=== PATIENT | female | born 1985 | race Two or more races ===

== ENCOUNTER 2020-07-14 13:48 | Outpatient (REF) | payer BC, SELFPAY ==
[2020-07-14 16:07] LABS: Syphilis Screen Nonreactive (Nonreactive)
[2020-07-15 08:42] LABS: BV Int Neg Control Negative (Negative); BV Int Pos Control Positive (Positive)
[2020-07-15 09:20] LABS: HBsAGNum1 0.14 S/CO (0.00-0.99); HIV AB/AG Nonreactive (Nonreactive); HIV Num 1 0.09 S/CO (0.00-0.99); Hepatitis B Surface Antigen Negative (Negative); ~HepC Num1 0.14 S/CO (0.00-0.79); ~Hepatitis C Antibody Nonreactive (Nonreactive)
[2020-07-16 01:12] LABS: C. trachomatis RNA TMA NOT DETECTED (NOT DETECTED); N. gonorrhoeae RNA TMA NOT DETECTED (NOT DETECTED)
== END 2020-07-14 13:49 | disposition home or self-care (01) ==
LOC: HO.LAB 13:48
PROVIDERS: PCP Internal Medicine; Visit Provider Obstetrics & Gynecology
DX: Z11.3 Encounter for screening for infections with a predominantly sexual mode of transmission (principal)
CPT/HCPCS: 36415; 86780; 86803; 87340; 87389; 87480; 87491; 87510; 87591; 87660

== ENCOUNTER → 2020-11-24 13:30 | Outpatient (BNVA) | payer BC, SELFPAY | PROVIDERS: PCP Internal Medicine; Visit Provider Obstetrics & Gynecology ==

== ENCOUNTER 2021-02-22 09:07 | Outpatient (REF) | payer BC, SELFPAY ==
[2021-02-22 10:35] LABS: Hematocrit 39.7 % (37-47); Hemoglobin 13.3 g/dl (12.0-16.0); Mean Corpuscular HGB Conc 33.5 g/dl (31.0-35.0); Mean Corpuscular Hemoglobin 30.4 pg (27.0-33.0); Mean Corpuscular Volume 90.8 fL (80-98); Mean Platelet Volume 8.8 fL (9.4-12.3); Platelet Count 306 X10*3/uL (160-400); Red Blood Count 4.37 X10*6/uL (4.20-5.50); Red Cell Distribution Width 11.7 % (11.0-16.0); White Blood Count 8.2 X10*3/uL (4.8-10.8)
[2021-02-22 14:40] LABS: CT PCR NOT DETECTED (Not Detect.); NG PCR NOT DETECTED (Not Detect.)
== END 2021-02-22 09:08 | disposition home or self-care (01) ==
LOC: HO.LAB 09:07
PROVIDERS: PCP Internal Medicine; Visit Provider Obstetrics & Gynecology
DX: Z11.3 Encounter for screening for infections with a predominantly sexual mode of transmission (principal); N93.9 Abnormal uterine and vaginal bleeding, unspecified
CPT/HCPCS: 36415; 84443; 85027; 87491; 87591

== ENCOUNTER 2021-03-10 11:01 | Outpatient (REF) | payer BC, SELFPAY ==
--- NOTE | ~2021-03-10 | US_ITS ---
EXAMINATION: US PELVIS COMPLETE US PELVIS ENDOVAGINAL CLINICAL INFORMATION: Abnormal uterine and vaginal bleeding unspecified COMPARISON: Ultrasound pelvis from 10/04/2017 TECHNIQUE: Transabdominal and transvaginal images of the pelvis were obtained. Color and spectral Doppler evaluation of the ovaries was performed. FINDINGS: UTERUS: Anteverted. Normal size and contour, measuring 11.2 x 5.1 x 5.9 cm (cervix to fundus x AP x transverse). Uniform, homogeneous endometrium measures 0.6 cm in width. Linear echogenic focus in the endometrium corresponding to intrauterine device. Nabothian cysts are noted. RIGHT OVARY: Surgically absent. No right adnexal masses or collections identified. LEFT OVARY: Normal size and echogenicity measuring 3.2 x 3.1 x 1.7 cm, volume 8.8 mL. Vascular flow is noted in the left ovary. Multiple follicles are noted in the left ovary. FREE FLUID: No pelvic free fluid. US/US pelvic and transvaginal IMPRESSION: 1. Right ovary surgically absent. 2. Multiple follicles of the left ovary. 3. IUD in situ. 4. Nabothian cysts noted.
== END 2021-03-10 11:02 | disposition home or self-care (01) ==
LOC: HO.US 11:01
PROVIDERS: PCP Internal Medicine; Visit Provider Obstetrics & Gynecology
DX: N93.9 Abnormal uterine and vaginal bleeding, unspecified (principal)
CPT/HCPCS: 76830; 76856

== ENCOUNTER 2021-03-24 10:05 | Outpatient (REF) | payer BC, SELFPAY | END 2021-03-24 10:06 | disposition home or self-care (01) | LOC: HO.LAB 10:05 | PROVIDERS: PCP Internal Medicine; Visit Provider Obstetrics & Gynecology | DX: N93.9 Abnormal uterine and vaginal bleeding, unspecified (principal) | CPT/HCPCS: 58100; 88305 ==

== ENCOUNTER → 2021-04-14 11:02 | Outpatient (BNVA) | payer BC, SELFPAY | PROVIDERS: PCP Internal Medicine; Visit Provider Obstetrics & Gynecology ==

== ENCOUNTER 2021-09-02 14:05 | Outpatient (REF) | payer BC, SELFPAY ==
[2021-09-02 14:16] LABS: MANUAL DIFF FLAG NO
[2021-09-02 14:40] LABS: Basophils Absolute Auto 0.1 X10*3/uL (0.0-0.2); Basophils Percent Auto 0.5 % (0-2); Eosinophils Absolute Auto 0.1 X10*3/uL (0.0-0.4); Eosinophils Percent Auto 1.4 % (0-4); Hematocrit 40.1 % (37.0-47.0); Hemoglobin 13.5 g/dl (12.0-16.0); Imm Gran Abs Auto 0.06 X10*3/uL (0.00-0.03); Imm Gran Pct Auto 0.6 % (0.0-0.4); Lymphocytes Absolute Auto 2.1 X10*3/uL (1.2-4.9); Lymphocytes Percent Auto 21.1 % (20-40); Mean Corpuscular HGB Conc 33.7 g/dl (31.0-35.0); Mean Corpuscular Hemoglobin 30.1 pg (27.0-33.0); Mean Corpuscular Volume 89.3 fL (80.0-98.0); Mean Platelet Volume 8.6 fL (9.4-12.3); Monocytes Absolute Auto 0.6 X10*3/uL (0.1-1.2); Neutrophils Percent Auto 70.4 % (45-73); Platelet Count 334 X10*3/uL (160-400); Red Blood Count 4.49 X10*6/uL (4.20-5.50); Red Cell Distribution Width 11.3 % (11.0-16.0); White Blood Count 9.9 X10*3/uL (4.8-10.8)
[2021-09-02 15:06] LABS: Anion Gap 11 (12-20); Blood Urea Nitrogen 17 mg/dL (9-16); Calcium 9.8 mg/dL (8.4-10.2); Carbon Dioxide 26 mmol/L (22-29); Chloride 106 mmol/L (96-108); Estimated Glomerular Filt Rate > 60; Glucose Random 89 mg/dL (60-115); Potassium 4.4 mmol/L (3.3-5.1); Sodium 139 mmol/L (135-145)
[2021-09-02 15:28] LABS: Thyroid Stimulating Hormone 1.32 uIU/mL (0.32-4.0)
== END 2021-09-02 14:06 | disposition home or self-care (01) ==
LOC: HO.LAB 14:05
PROVIDERS: PCP Internal Medicine; Visit Provider Internal Medicine
DX: Z00.00 Encounter for general adult medical examination without abnormal findings (principal); Z13.0 Encounter for screening for diseases of the blood and blood-forming organs and certain disorders involving the immune mechanism; R51.9 Headache, unspecified
CPT/HCPCS: 36415; 80048; 84443; 85025

== ENCOUNTER 2021-11-12 13:33 | Emergency (ER) | payer BC, SELFPAY ==
--- NOTE | ~2021-11-12 | CT_ITS ---
EXAMINATION: CT ABDOMEN AND PELVIS WITHOUT CONTRAST CLINICAL INFORMATION: Abdominal pain and bloating COMPARISON: Previous pelvic ultrasound February 2021 TECHNIQUE: Multidetector volumetric imaging was performed from the superior aspect of the liver through the pubic symphysis. Sagittal and coronal reformatted images were obtained on the technologist's workstation. This CT examination was performed using dose optimization techniques as appropriate, variously including the following: *Automated exposure control *Adjustment of mA and/or kV according to patient size (this includes techniques or standardized protocols for targeted exams where dose is matched to indication/reason for exam; i.e. extremities or head) *Use of iterative reconstruction technique DLP: 676 mGy-cm FINDINGS: LUNG BASES: The visualized lung bases are unremarkable. LIVER, GALLBLADDER, AND BILIARY TREE: The liver is normal in size, shape, and attenuation. No focal hepatic lesion or biliary ductal dilatation is present. The gallbladder has been removed. PANCREAS: Unremarkable. SPLEEN: Unremarkable. ADRENAL GLANDS: Unremarkable. KIDNEYS AND URETERS: There is a small 2 mm nonobstructing left renal stone. The kidneys are otherwise normal. BLADDER: Unremarkable. GASTROINTESTINAL TRACT: There are postsurgical changes from gastric sleeve. There is a question of mild wall thickening of the distal small bowel and. There is mild stranding of the small bowel mesentery and shotty small bowel mesentery lymphadenopathy. Appearance is questionable for mild enteritis. Small and large bowel is otherwise normal. The appendix is normal. ABDOMINAL WALL: No significant hernia is appreciated. LYMPH NODES: Small, small bowel mesentery and retroperitoneal lymphadenopathy. No enlarged lymph nodes. No ascites. VASCULAR: Unremarkable. PELVIC VISCERA: There is an IUD in the uterus in satisfactory position. OSSEOUS STRUCTURES: There are degenerative changes at L5-S1. CT/CT abdomen pelvis wo con IMPRESSION: Small nonobstructing left renal stone. Post gastric sleeve. Question mild wall thickening of the distal small bowel, shotty small bowel mesentery lymphadenopathy and mild small bowel mesentery fat stranding. Appearance is questionable for enteritis. IUD in the uterus in satisfactory position. Fleischner guidelines were followed.
[2021-11-12 14:01] VITALS: BP 154/93; PULSE 85; RESP 18; TEMP 36.2; O2SAT 100; BMI 29.7
[2021-11-12 14:30] LABS: MANUAL DIFF FLAG NO
[2021-11-12 14:33] LABS: Basophils Percent Auto 0.3 % (0-2); Eosinophils Absolute Auto 0.2 X10*3/uL (0.0-0.4); Hematocrit 38.6 % (37.0-47.0); Hemoglobin 13.3 g/dl (12.0-16.0); Imm Gran Abs Auto 0.05 X10*3/uL (0.00-0.03); Imm Gran Pct Auto 0.6 % (0.0-0.4); Lymphocytes Absolute Auto 1.3 X10*3/uL (1.2-4.9); Lymphocytes Percent Auto 15.1 % (20-40); Mean Corpuscular HGB Conc 34.5 g/dl (31.0-35.0); Mean Corpuscular Hemoglobin 29.8 pg (27.0-33.0); Mean Corpuscular Volume 86.5 fL (80.0-98.0); Mean Platelet Volume 8.4 fL (9.4-12.3); Monocytes Absolute Auto 0.7 X10*3/uL (0.1-1.2); Monocytes Percent Auto 8.2 % (2-11); Neutrophils Absolute Auto 6.4 x10*3/uL (2.0-8.3); Neutrophils Percent Auto 73.8 % (45-73); Platelet Count 268 X10*3/uL (160-400); Red Blood Count 4.46 X10*6/uL (4.20-5.50); Red Cell Distribution Width 11.2 % (11.0-16.0); White Blood Count 8.7 X10*3/uL (4.8-10.8)
[2021-11-12 14:47] LABS: Alanine Aminotransferase 18 U/L (0-31); Albumin Level 4.2 g/dL (3.5-5.0); Alkaline Phosphatase 73 U/L (39-117); Anion Gap 10 (12-20); Aspartate Amino Transferase 15 U/L (5-31); Bilirubin Total 0.7 mg/dL (0.0-1.0); Blood Urea Nitrogen 8 mg/dL (9-16); Calcium 9.2 mg/dL (8.4-10.2); Carbon Dioxide 26 mmol/L (22-29); Chloride 106 mmol/L (96-108); Creatinine Clr Calc Pharmacy 106.6; Estimated Glomerular Filt Rate > 60; Glucose Random 87 mg/dL (60-115); Potassium 4.1 mmol/L (3.3-5.1); Sodium 138 mmol/L (135-145); Total Protein 7.1 g/dL (6.5-8.0)
[2021-11-12 16:31] VITALS: BP 130/81; PULSE 81; RESP 16; O2SAT 98
--- NOTE | 2021-11-12 16:35 | ED.ABDPAIN ---
HPI - Abdominal Pain General Chief Complaint: Abdominal Pain Stated Complaint: Abd pain/Nausea Time Seen by Provider: 11/12/21 20:10 Source: patient Mode of arrival: ambulatory Limitations: no limitations History of Present Illness HPI narrative: 36-year-old female presents with 1 day of abdominal pain and distension, feels bloated diffusely, has a burning sensation, and has had watery diarrhea without passing flatus. Patient also states to have a headache that has not really been relieved with migraine medications. Patient was evaluated at an urgent care and referred to the emergency department. MD elicited complaint: abdominal pain and other (Migraine) Pertinent past history: other (Gastric sleeve 2009) Onset (ago): day(s) (1) Pain Consistency: constant Location: diffuse Severity: severe Pain scale (0-10): 9 Quality: aching, fullness and burning Radiation: none Migration to: no migration Exacerbating factors: eating and movement Relieving factors: nothing Associated symptoms: diarrhea Treatments prior to arrival: prescription analgesics Related Data Home Medications Medication Instructions Recorded Confirmed acetaminophen 500 mg tablet 1,000 mg PO Q8H 07/14/20 09/28/21 hydroxyzine HCl 25 mg tablet 25 mg PO Q8H PRN 07/14/20 09/28/21 levonorgestrel 20 mcg/24 hours (7 INTRAUTERINE 07/14/20 09/28/21 yrs) 52 mg intrauterine device (Mirena) sumatriptan succinate 50 mg tablet mg PO 07/14/20 09/28/21 Previous Rx's Medication Instructions Recorded meclizine 25 mg tablet 25 mg PO DAILY #90 tab 05/19/20 levofloxacin 750 mg tablet 750 mg PO Q24H 6 Days #6 tab 11/12/21 metronidazole 500 mg tablet 500 mg PO Q8H 7 Days #21 tab 11/12/21 oxycodone 5 mg tablet 5 mg PO BID PRN #3 tab 11/12/21 Allergies Allergy/AdvReac Type Severity Reaction Status Date / Time BuSpar Allergy Intermediate hives Verified 11/12/21 14:00 buspirone [From BUSPAR] Allergy Intermediate HIVES Verified 11/12/21 14:00 fentanyl [FENTANYL] Allergy Intermediate FENTANYL Verified 11/12/21 14:00 DURING SURGERY UNKNOWN REACTION tramadol [TRAMADOL] Allergy Intermediate MIGRAINES, Verified 11/12/21 14:00 severe headaches (migraine); dry mouth Pollen, dust Allergy Unknown Unknown Uncoded 08/18/20 08:29 sutures-post op Allergy Unknown infection Uncoded 02/27/19 00:00 vicodin Allergy Unknown dizziness, Uncoded 02/27/19 00:00 light headedness, ineffective Review of Systems Review of Systems Constitutional: Positive headache, No Fever, No Chills ENT/Mouth: No sore throat Eyes: No Eye Pain, No Swelling, No Redness Cardiovascular: No Chest Pain, No SOB Respiratory: No Cough, No Sputum, No Wheezing Gastrointestinal: positive Nausea, no Vomiting, positive watery Diarrhea, positive abdominal pain Genitourinary: No Dysuria, no urinary frequency, no Hematuria, no Flank Pain, no hesitancy Musculoskeletal: No joint pain, No Myalgias Skin: No Skin Lesions, No rash Neuro: No Weakness, No Numbness, positive Headache Psych: No Anxiety/Panic, No Depression Heme/Lymph: No Bruising, No Lymphadenopathy Endocrine: No Polyuria, No Polydipsia Yes all other systems are reviewed and are negative PMFSH Past Medical History Attestation statement: The following information was validated with the patient. Source: old records reviewed Medical History Acute arthritis Anxiety Cholecystectomy planned Depression Migraine headache Sciatic leg pain Surgical History H/O LEEP History of cholecystectomy History of right oophorectomy History of sleeve gastrectomy [place] teeth extracted Family History Family History Mother Diabetes Hypertension Chronic mental illness Father Medical history unknown Maternal Grandmother Diabetes Maternal Uncle Brain tumor Brother Asthma Son In good health Son In good health Maternal Grandfather Esophageal cancer Social History Social History Housing: House Patient Tobacco Use Status: Never used Tobacco e-Cigarette/Vaping Use: Never Used Second Hand Smoke Exposure: No Advance Directives: No Advance Directives Information Provided: No service: No Current occupational status: employed Cognitive needs: No Hearing needs: No Vision needs: Yes Physical Exam ED Vital Signs: Vital Signs - 24 hr 11/12/21 14:01 11/12/21 16:31 11/12/21 19:41 Temperature 97.2 F 98.0 F Pulse Rate 85 81 71 Respiratory Rate 18 16 16 Blood Pressure 154/93 H 130/81 114/58 L Pulse Oximetry 100 98 100 11/12/21 20:57 Temperature Pulse Rate 68 Respiratory Rate 16 Blood Pressure 116/64 Pulse Oximetry BMI result Body Mass Index 29.7 Appearance: Alert. Oriented X3. Mild distress. Eyes: Pupils equal, round and reactive to light. EOMI. Sclera nonicteric. ENT: Pharynx normal. Moist mucous membranes. Neck: Normal inspection. Neck supple. No nuchal rigidity. No vertebral tenderness. CVS: Normal heart rate and rhythm. Pulses normal. Respiratory: No respiratory distress. Breath sounds normal. Abdomen: Soft and diffusely tender. Hyperactive bowel sounds to all 4 quadrants. Left CVA tenderness noted. Skin: Skin warm and dry. Normal skin color. Normal skin turgor. Extremities: No lower extremity edema. Gait well-balanced well coordinated. Neuro: No motor deficit. No sensory deficit. Cranial nerves 2-12 intact Course Course Course Narrative: 36-year-old female presents from urgent care for abdominal pain and headache. Status post gastric bypass in 2009, reporting watery diarrhea, not passing flatus, stating to have abdominal distension and burning pain. Patient does have chronic migraines, unable to control her migraine with medications prescribed her at home. Patient neurovascularly intact. Appears nontoxic, afebrile, and labs are within normal limits. Urinalysis is pending. 19:44 CT scan of abdomen indicates enteritis and renal stones. Urinalysis positive for heme. Will treat with Flagyl and Levaquin as patient does have antibiotics, has a gastric sleeve and amoxicillin may cause increased abdominal pain. Patient verbalized understanding of and agrees to plan of care to discharge home. Verbalized understanding of signs and symptoms indicating need for emergent intervention MDM - Abdominal Pain Differential Diagnosis Differential diagnosis: Likely abdominal pain, acute appendicitis, calculus of kidney, diverticulitis, pancreatitis and small bowel obstruction Medical Records Attestation: I reviewed the patient's medical records. Lab Data Attestation: I reviewed the patient's lab results. Result diagrams: 11/12/21 14:27 11/12/21 14:27 Labs: Lab Results 11/12/21 11/12/21 11/12/21 Range/Units 14:27 14:27 17:13 WBC 8.7 (4.8-10.8) X10*3/uL RBC 4.46 (4.20-5.50) X10*6/uL Hgb 13.3 (12.0-16.0) g/dl Hct 38.6 (37.0-47.0) % MCV 86.5 (80.0-98.0) fL MCH 29.8 (27.0-33.0) pg MCHC 34.5 (31.0-35.0) g/dl RDW 11.2 (11.0-16.0) % Plt Count 268 (160-400) X10*3/uL MPV 8.4 L (9.4-12.3) fL Immature Gran % (Auto) 0.6 H (0.0-0.4) % Neut % (Auto) 73.8 H (45-73) % Lymph % (Auto) 15.1 L (20-40) % Smyth % (Auto) 8.2 (2-11) % Eos % (Auto) 2.0 (0-4) % Baso % (Auto) 0.3 (0-2) % Lymph # (Auto) 1.3 (1.2-4.9) X10*3/uL Smyth # (Auto) 0.7 (0.1-1.2) X10*3/uL Eos # (Auto) 0.2 (0.0-0.4) X10*3/uL Baso # (Auto) 0.0 (0.0-0.2) X10*3/uL Abs Immat Gran (auto) 0.05 H (0.00-0.03) X10*3/uL Absolute Neuts (auto) 6.4 (2.0-8.3) x10*3/uL Absolute Nucleated RBC 0.000 (0.0-0.012) X10*3/uL Nucleated RBC % (auto) 0.0 (0.0-0.2) /100WBC Sodium 138 (135-145) mmol/L Potassium 4.1 (3.3-5.1) mmol/L Chloride 106 (96-108) mmol/L Carbon Dioxide 26 (22-29) mmol/L Anion Gap 10 L (12-20) BUN 8 L D (9-16) mg/dL Creatinine 0.78 (0.5-1.4) mg/dL Estim Creat Clear Calc 106.6 Estimated GFR > 60 Random Glucose 87 (60-115) mg/dL Calcium 9.2 D (8.4-10.2) mg/dL Total Bilirubin 0.7 (0.0-1.0) mg/dL AST 15 (5-31) U/L ALT 18 (0-31) U/L Alkaline Phosphatase 73 (39-117) U/L Total Protein 7.1 (6.5-8.0) g/dL Albumin 4.2 (3.5-5.0) g/dL Lipase 31 (8-78) U/L Urine Color Urine Appearance Urine pH (5.0-8.0) Ur Specific [place] (1.005-1.025) Urine Protein (NEG-TRACE) MG/DL Urine Glucose (UA) (NEG) MG/DL Urine Ketones (NEG) MG/DL Urine Blood (NEG) Urine Nitrite (NEG) Ur Leukocyte Esterase (NEG) Urine RBC (0) /HPF Urine WBC (0-4) /HPF Ur Squamous Epith Cells /LPF Urine Bacteria /LPF COVID-19 (ENMANUEL) (Negative) COVID-19 Clin Com Influenza Type A (BETSEY) Negative (Negative) Influenza Type B (BETSEY) Negative (Negative) Influenza A & B Note See Note 11/12/21 11/12/21 Range/Units 17:13 19:04 WBC (4.8-10.8) X10*3/uL RBC (4.20-5.50) X10*6/uL Hgb (12.0-16.0) g/dl Hct (37.0-47.0) % MCV (80.0-98.0) fL MCH (27.0-33.0) pg MCHC (31.0-35.0) g/dl RDW (11.0-16.0) % Plt Count (160-400) X10*3/uL MPV (9.4-12.3) fL Immature Gran % (Auto) (0.0-0.4) % Neut % (Auto) (45-73) % Lymph % (Auto) (20-40) % Smyth % (Auto) (2-11) % Eos % (Auto) (0-4) % Baso % (Auto) (0-2) % Lymph # (Auto) (1.2-4.9) X10*3/uL Smyth # (Auto) (0.1-1.2) X10*3/uL Eos # (Auto) (0.0-0.4) X10*3/uL Baso # (Auto) (0.0-0.2) X10*3/uL Abs Immat Gran (auto) (0.00-0.03) X10*3/uL Absolute Neuts (auto) (2.0-8.3) x10*3/uL Absolute Nucleated RBC (0.0-0.012) X10*3/uL Nucleated RBC % (auto) (0.0-0.2) /100WBC Sodium (135-145) mmol/L Potassium (3.3-5.1) mmol/L Chloride (96-108) mmol/L Carbon Dioxide (22-29) mmol/L Anion Gap (12-20) BUN (9-16) mg/dL Creatinine (0.5-1.4) mg/dL Estim Creat Clear Calc Estimated GFR Random Glucose (60-115) mg/dL Calcium (8.4-10.2) mg/dL Total Bilirubin (0.0-1.0) mg/dL AST (5-31) U/L ALT (0-31) U/L Alkaline Phosphatase (39-117) U/L Total Protein (6.5-8.0) g/dL Albumin (3.5-5.0) g/dL Lipase (8-78) U/L Urine Color YELLOW Urine Appearance CLEAR Urine pH 6.0 (5.0-8.0) Ur Specific [place] 1.015 (1.005-1.025) Urine Protein NEG (NEG-TRACE) MG/DL Urine Glucose (UA) NEG (NEG) MG/DL Urine Ketones 15 (NEG) MG/DL Urine Blood 2+ H (NEG) Urine Nitrite NEG (NEG) Ur Leukocyte Esterase NEG (NEG) Urine RBC 15-29 H (0) /HPF Urine WBC 0 (0-4) /HPF Ur Squamous Epith Cells 3+ /LPF Urine Bacteria TRACE /LPF COVID-19 (ENMANUEL) Negative (Negative) COVID-19 Clin Com See Note Influenza Type A (BETSEY) (Negative) Influenza Type B (BETSEY) (Negative) Influenza A & B Note Imaging Data CT abdomen pelvis: Attestation: I personally reviewed and interpreted this imaging study as follows: Radiologist's impression: EXAMINATION: CT ABDOMEN AND PELVIS WITHOUT CONTRAST? CLINICAL INFORMATION: Abdominal pain and bloating? COMPARISON: Previous pelvic ultrasound February 2021? TECHNIQUE: Multidetector volumetric imaging was performed from the superior aspect of the liver through the pubic symphysis. Sagittal and coronal reformatted images were obtained on the technologist's workstation.? This CT examination was performed using dose optimization techniques as appropriate, variously including the following: *Automated exposure control *Adjustment of mA and/or kV according to patient size (this includes techniques or standardized protocols for targeted exams where dose is matched to indication/reason for exam; i.e. extremities or head) *Use of iterative reconstruction technique DLP: 676 mGy-cm FINDINGS: LUNG BASES: The visualized lung bases are unremarkable.? LIVER, GALLBLADDER, AND BILIARY TREE: The liver is normal in size, shape, and attenuation. No focal hepatic lesion or biliary ductal dilatation is present. The gallbladder has been removed. PANCREAS: Unremarkable.? SPLEEN: Unremarkable.? ADRENAL GLANDS: Unremarkable.? KIDNEYS AND URETERS: There is a small 2 mm nonobstructing left renal stone. The kidneys are otherwise normal.? BLADDER: Unremarkable.? GASTROINTESTINAL TRACT: There are postsurgical changes from gastric sleeve. There is a question of mild wall thickening of the distal small bowel and. There is mild stranding of the small bowel mesentery and shotty small bowel mesentery lymphadenopathy. Appearance is questionable for mild enteritis. Small and large bowel is otherwise normal. The appendix is normal.? ABDOMINAL WALL: No significant hernia is appreciated.? LYMPH NODES: Small, small bowel mesentery and retroperitoneal lymphadenopathy. No enlarged lymph nodes. No ascites. VASCULAR: Unremarkable. PELVIC VISCERA: There is an IUD in the uterus in satisfactory position. ? OSSEOUS STRUCTURES: There are degenerative changes at L5-S1.? CT/CT abdomen pelvis wo con IMPRESSION: Small nonobstructing left renal stone. Post gastric sleeve. Question mild wall thickening of the distal small bowel, shotty small bowel mesentery lymphadenopathy and mild small bowel mesentery fat stranding. Appearance is questionable for enteritis. IUD in the uterus in satisfactory position.? ? Fleischner guidelines were followed. Discharge Plan Discharge Clinical Impression: Enteritis, Migraine, Calculus of kidney Patient Disposition: Home, Self-Care Instructions: Kidney Stones (ED), Migraine Headache (ED), Enteritis (ED) Additional Instructions: You were evaluated for abdominal pain and migraine. CT scan of abdomen and pelvis indicates enteritis as well as a kidney stone. We are treating you with Levaquin 750 mg for 7 days and Flagyl 500 mg every 8 hours for 7 days Please complete the entire course of these medications. Do not drink alcohol while taking this medication. We gave your 1st dose of medication in the emergency department. We are prescribing oxycodone for pain management. This medication has high risk for addiction and abuse. Do not drive or operate machinery while taking this medication. This medication can cause drowsiness, increased risk for falls, constipation, and delay reaction time. Follow-up with primary care physician. Thank you for choosing this emergency department for evaluation. Please follow-up with primary care physician as needed. Return to the emergency department for any new, concerning, or worsening symptoms. Prescriptions: New levofloxacin 750 mg tablet 750 mg PO Q24H 6 Days Qty: 6 0RF Rx Instructions: Start on 11/13/2021. First dose given at 20:30 in the emergency department metronidazole 500 mg tablet 500 mg PO Q8H 7 Days Qty: 21 0RF oxycodone 5 mg tablet 5 mg PO BID PRN (Reason: pain) Qty: 3 0RF No Action meclizine 25 mg tablet 25 mg PO DAILY Qty: 90 8RF sumatriptan succinate 50 mg tablet PO 0RF acetaminophen 500 mg tablet 1,000 mg PO Q8H 0RF hydroxyzine HCl 25 mg tablet 25 mg PO Q8H PRN (Reason: anxiety) 0RF Mirena 20 mcg/24 hours (6 yrs) 52 mg intrauterine device intrauterine 0RF Interventions: ED Discharge Assessment Last Done: 11/12/21 20:58 Discharge Date/Time: 11/12/21 21:04
[2021-11-12 17:04] LABS: Lipase 31 U/L (8-78)
[2021-11-12] MEDS: 0.9 % Sodium Chloride 1,000 ML 999 ML IVCONT (17:04)
[2021-11-12] MEDS: Lidocaine HCl Viscous 2 % 15 ML SOLUTION MUCOUS MEM (17:05)
[2021-11-12] MEDS: Magnesium Hydrox/Alum Hydrox 30 ML ORAL.SUSP PO (17:05)
[2021-11-12] MEDS: PHENobarb/Hyoscy/Atropine/Scop 10 ML ELIXIR PO (17:06)
[2021-11-12] MEDS: diphenhydrAMINE HCL 50 MG/ML VIAL 25 MG IVPUSH (17:07)
[2021-11-12] MEDS: Ketorolac Tromethamine 30 MG/ML VIAL IVPUSH (17:09)
[2021-11-12] MEDS: Metoclopramide HCl 10 MG/2 ML VIAL IVPUSH (17:10)
[2021-11-12 17:40] LABS: COVID-19 Test Negative (Negative); IDNOW Serial# 16C4AD1C; Influenza A Negative (Negative); Influenza B2 Negative (Negative)
[2021-11-12 19:12] LABS: Appearance Urine CLEAR; Color Urine YELLOW; Glucose Urine UA NEG (NEG); Leukocyte Esterase Urine NEG (NEG); Nitrite Urine NEG (NEG); Specific Gravity - Urine 1.015 (1.005-1.025); UACC Culture Trigger NO; Urine Blood 2+ (NEG); Urine Ketones 15 MG/DL (NEG); Urine Protein NEG (NEG-TRACE)
[2021-11-12 19:23] LABS: Bacteria Urine TRACE /LPF; Squamous Epithelial Cell Urine 3+ /LPF; WBC Urine 0 /HPF (0-4)
[2021-11-12 19:41] VITALS: BP 114/58; PULSE 71; RESP 16; TEMP 36.7; O2SAT 100
[2021-11-12] MEDS: levoFLOXacin 750 MG TABLET PO (20:53)
[2021-11-12] MEDS: metroNIDAZOLE 500 MG TABLET PO (20:53)
[2021-11-12 20:57] VITALS: BP 116/64; PULSE 68; RESP 16
== END 2021-11-12 21:04 | disposition home or self-care (01) ==
PROVIDERS: Nurse Practitioner Family; Emergency Provider Internal Medicine; PCP Internal Medicine
DX: K52.9 Noninfective gastroenteritis and colitis, unspecified (principal); G43.909 Migraine, unspecified, not intractable, without status migrainosus; N20.0 Calculus of kidney; Z20.822 Contact with and (suspected) exposure to COVID-19; Z98.84 Bariatric surgery status
CPT/HCPCS: 36415; 74176; 80053; 81001; 83690; 85025; 87502; 87635; 96361; 96374; 96375; 99284; J1200; J1885; J2765

== ENCOUNTER 2021-12-01 13:29 | Outpatient (REF) | payer BC, SELFPAY ==
[2021-12-02 09:52] LABS: BV Int Neg Control Negative (Negative); BV Int Pos Control Positive (Positive)
[2021-12-02 10:17] LABS: CT PCR NOT DETECTED (Not Detect.); NG PCR NOT DETECTED (Not Detect.)
== END 2021-12-01 13:30 | disposition home or self-care (01) ==
LOC: HO.LAB 13:29
PROVIDERS: Visit Provider Obstetrics & Gynecology
DX: Z01.419 Encounter for gynecological examination (general) (routine) without abnormal findings (principal); Z11.3 Encounter for screening for infections with a predominantly sexual mode of transmission
CPT/HCPCS: 87480; 87491; 87510; 87591; 87660

== ENCOUNTER 2022-06-14 12:58 | Outpatient (REF) | payer BC, SELFPAY ==
[2022-06-14 13:19] LABS: Appearance Urine Cloudy; Color Urine ORANGE; PH 5.5 (5.0-9.0); UMIC TRIGGER UACC YES
[2022-06-14 13:38] LABS: Bacteria Urine 4+ (None Seen); Hyaline Casts Urine 0-2 /LPF (0-2); RBC Urine >20 /HPF (0-2); UACC Culture Trigger YES; WBC Urine >50 /HPF (0-5)
== END 2022-06-14 12:59 | disposition home or self-care (01) ==
LOC: HO.LAB 12:58
PROVIDERS: PCP Internal Medicine; Visit Provider Internal Medicine
DX: N39.0 Urinary tract infection, site not specified (principal)
CPT/HCPCS: 81001; 87086; 87088; 87186

== ENCOUNTER 2022-09-11 10:03 | Outpatient (REF) | payer BC, SELFPAY ==
[2022-09-11 12:00] LABS: HBS Num1 7.99 mIU/mL (0-7.99); ~Hepatitis B Surface Antibody NONREACTIVE (Nonreactive)
[2022-09-12 22:28] LABS: Mumps Virus IgG Antibody 9.18 AU/mL; Rubeola IgG (Measles) >300.00 AU/mL
== END 2022-09-11 10:04 | disposition home or self-care (01) ==
LOC: HO.LAB 10:03
PROVIDERS: PCP Internal Medicine; Visit Provider Internal Medicine
DX: Z00.00 Encounter for general adult medical examination without abnormal findings (principal); Z28.39 Other underimmunization status
CPT/HCPCS: 36415; 86706; 86735; 86762; 86765; 86787

== ENCOUNTER 2022-12-14 14:04 | Outpatient (REF) | payer BC, SELFPAY ==
[2022-12-21 02:08] LABS: HPV mRNA E6/E7 rflx Not Detected (Not Detected)
== END 2022-12-14 14:05 | disposition home or self-care (01) ==
LOC: HO.LNP 14:04
PROVIDERS: PCP Internal Medicine; Visit Provider Obstetrics & Gynecology
DX: Z01.419 Encounter for gynecological examination (general) (routine) without abnormal findings (principal); Z11.51 Encounter for screening for human papillomavirus (HPV)
CPT/HCPCS: 87624; 88142

== ENCOUNTER 2022-12-14 14:51 | Outpatient (REF) | payer BC, SELFPAY ==
[2022-12-15 05:06] LABS: Syphilis Screen Nonreactive (Nonreactive)
[2022-12-15 05:15] LABS: HBsAGNum1 0.32 S/CO (0.00-0.99); HIV AB/AG Nonreactive (Nonreactive); HIV Num 1 0.07 S/CO (0.00-0.99); Hepatitis B Surface Antigen Negative (Negative); ~HepC Num1 0.19 S/CO (0.00-0.79); ~Hepatitis C Antibody Nonreactive (Nonreactive)
[2022-12-15 11:49] LABS: CT PCR NOT DETECTED (Not Detect.); NG PCR NOT DETECTED (Not Detect.)
[2022-12-15 13:57] LABS: BV Int Neg Control Negative (Negative); BV Int Pos Control Positive (Positive)
== END 2022-12-14 14:52 | disposition home or self-care (01) ==
LOC: HO.LAB 14:51
PROVIDERS: PCP Internal Medicine; Visit Provider Obstetrics & Gynecology
DX: Z11.4 Encounter for screening for human immunodeficiency virus [HIV] (principal); Z20.2 Contact with and (suspected) exposure to infections with a predominantly sexual mode of transmission
CPT/HCPCS: 0353U; 86780; 86803; 87340; 87389; 87480; 87510; 87660

== ENCOUNTER 2023-04-16 14:22 | Outpatient (REF) | payer BC, SELFPAY ==
--- NOTE | ~2023-04-16 | MM_ITS ---
EXAMINATION: MM SCREENING DIGITAL BREAST TOMOSYNTHESIS, BILATERAL CLINICAL INFORMATION: Screening. Asymptomatic. COMPARISON: Mammography: There are no prior studies for comparison. TECHNIQUE: Digital breast tomosynthesis is performed in both the craniocaudal and mediolateral oblique views along with computer-aided detection (CAD). Synthesized 2D images are generated from the tomosynthesis. FINDINGS: The breasts are almost entirely fatty (ACR BI-RADS breast composition Category a). There are no significant masses, abnormal calcifications, or other abnormalities. MM/MM tomosynthesis screening BI IMPRESSION: No mammographic evidence of malignancy. ASSESSMENT: BI-RADS BI-RADS 1 - Negative RECOMMENDATION: Routine annual mammography screening. 1 year F/U This examination should not preclude the clinical evaluation of a suspicious palpable abnormality. This patient's information was entered into a reminder system with a target due date for their next mammogram.
== END 2023-04-16 14:23 | disposition home or self-care (01) ==
LOC: HO.MAMMO 14:22
PROVIDERS: PCP Internal Medicine; Visit Provider Obstetrics & Gynecology
DX: Z12.31 Encounter for screening mammogram for malignant neoplasm of breast (principal)
CPT/HCPCS: 77063; 77067

== ENCOUNTER → 2023-04-16 14:30 | Outpatient (BNV) | payer BC, SELFPAY | PROVIDERS: PCP Internal Medicine; Visit Provider Radiology Diagnostic Radiology | DX: Z12.31 Encounter for screening mammogram for malignant neoplasm of breast (principal) | CPT/HCPCS: 77063; 77067 ==

== ENCOUNTER 2023-08-28 13:04 | Outpatient (AMB) | payer BC, SELFPAY ==
--- NOTE | 2023-08-28 13:13 | AM.OFFVISNUR ---
Intake Intake Visit Reasons: TB-PPD Plant Allergies BuSpar Allergy (Intermediate, Verified 12/14/22 14:22) hives buspirone [From BUSPAR] Allergy (Intermediate, Verified 12/14/22 14:22) HIVES fentanyl [FENTANYL] Allergy (Intermediate, Verified 12/14/22 14:22) FENTANYL DURING SURGERY UNKNOWN REACTION sumatriptan [From Imitrex] Allergy (Intermediate, Verified 12/14/22 14:22) Anaphylaxis topiramate [From Topamax] Allergy (Intermediate, Verified 12/14/22 14:22) Numbness tramadol [TRAMADOL] Allergy (Intermediate, Verified 12/14/22 14:22) MIGRAINES, severe headaches (migraine); dry mouth trazodone Allergy (Intermediate, Verified 12/14/22 14:22) Migraine Pollen, dust Allergy (Unknown, Uncoded 12/14/22 14:22) Unknown sutures-post op Allergy (Unknown, Uncoded 12/14/22 14:22) infection vicodin Allergy (Unknown, Uncoded 12/14/22 14:22) dizziness, light headedness, ineffective Office Meds tuberculin PPD 5 tub. unit/0.1 mL intradermal injection solution Performing Provider: Lonnie Arthur MD [facility] Administered by: Merle Muñiz RN on 08/28/23 13:13 Dose Route Admin Location Dispensed Lot Number Expiration Date NDC Assistant Professor Of Business 0.1 mL intradermal 0.1 mL [id number] 10/22/26 77121-925-68 [employer] Coding Assessment & Plan Assessment & Plan Orders: Orders AMB PPD Planted Today Z11.1 - Encounter for screening for respiratory tuberculosis
== END 2023-08-28 13:14 | disposition home or self-care (01) ==
PROVIDERS: PCP Internal Medicine; Visit Provider Internal Medicine
DX: Z11.1 Encounter for screening for respiratory tuberculosis (principal)
CPT/HCPCS: 86580

== ENCOUNTER 2023-08-30 13:36 | Outpatient (REF) | payer BC, SELFPAY ==
[2023-08-31 08:16] LABS: HBS Num1 8.17 mIU/mL (0-7.99)
[2023-08-31 12:45] LABS: HBS Num2 8.33 mIU/mL (0-7.99); HBS Num3 8.44 mIU/mL (0-7.99); ~Hepatitis B Surface Antibody GRAYZONE (Nonreactive)
== END 2023-08-30 13:37 | disposition home or self-care (01) ==
LOC: HO.LAB 13:36
PROVIDERS: PCP Internal Medicine; Visit Provider Internal Medicine
DX: Z00.00 Encounter for general adult medical examination without abnormal findings (principal)
CPT/HCPCS: 36415; 86706

== ENCOUNTER 2023-10-25 13:39 | Outpatient (AMB) | payer BC, SELFPAY ==
--- NOTE | 2023-10-25 13:48 | AM.OFFVISNUR ---
Intake Intake Visit Reasons: Hep B Allergies BuSpar Allergy (Intermediate, Verified 12/14/22 14:22) hives buspirone [From BUSPAR] Allergy (Intermediate, Verified 12/14/22 14:22) HIVES fentanyl [FENTANYL] Allergy (Intermediate, Verified 12/14/22 14:22) FENTANYL DURING SURGERY UNKNOWN REACTION sumatriptan [From Imitrex] Allergy (Intermediate, Verified 12/14/22 14:22) Anaphylaxis topiramate [From Topamax] Allergy (Intermediate, Verified 12/14/22 14:22) Numbness tramadol [TRAMADOL] Allergy (Intermediate, Verified 12/14/22 14:22) MIGRAINES, severe headaches (migraine); dry mouth trazodone Allergy (Intermediate, Verified 12/14/22 14:22) Migraine Pollen, dust Allergy (Unknown, Uncoded 12/14/22 14:22) Unknown sutures-post op Allergy (Unknown, Uncoded 12/14/22 14:22) infection vicodin Allergy (Unknown, Uncoded 12/14/22 14:22) dizziness, light headedness, ineffective Immunizations Recombivax HB (PF) 10 mcg/mL intramuscular suspension Performing Provider: Lonnie Arthur MD [facility] Administered by: Merle Muñiz RN on 10/25/23 13:48 Dose Route Admin Location Dispensed Lot Number Expiration Date VAC [place] 1 mL IM Left Deltoid 1 mL [id number] 05/31/24 95187-110-92 SpontactsINE VIS Given Date VIS Provided VIS Publication Date 10/25/23 Single Vaccine 22 Eligibility Eligibility Date Funding Source Not [facility] Eligible 10/25/23 Private Coding Assessment & Plan Assessment & Plan Orders: Orders Hepatitis B Adult Immunization Today Z23 - Encounter for immunization Medications: New Recombivax HB (PF) (hepatitis B virus vacc.rec(PF)) 1.0 mL IM ONCE 1 mL 0RF NS Z23 - Encounter for immunization
== END 2023-10-25 13:52 | disposition home or self-care (01) ==
LOC: HO.HMGH 13:39
PROVIDERS: PCP Internal Medicine; Visit Provider Internal Medicine
DX: Z23 Encounter for immunization (principal)
CPT/HCPCS: 90471; 90746

== ENCOUNTER 2023-12-10 09:58 | Outpatient (AMB) | payer BC, SELFPAY ==
[2023-12-10 10:02] VITALS: BP 124/80; PULSE 85; O2SAT 99; BMI 30.2
--- NOTE | 2023-12-10 10:02 | A.OFFPC_ITS ---
Vital Signs 12/10/23 10:02 Height 5 ft 6 in Weight 187 lb BMI 30.2 BP 124/80 Blood Pressure Location Lt brachial Position Sitting Pulse 85 Pulse Source Pulse Oximeter Pulse Oximetry (%) 99 Oxygen Delivery Method Room Air Intake Visit Reasons: Annual Exam Floater Operator Required: No Furnace Charger: Not Required per policy Accompanied by: Self / Same As Patient Allergies BuSpar Allergy (Intermediate, Verified 12/10/23 10:03) hives buspirone [From BUSPAR] Allergy (Intermediate, Verified 12/10/23 10:03) HIVES fentanyl [FENTANYL] Allergy (Intermediate, Verified 12/10/23 10:03) FENTANYL DURING SURGERY UNKNOWN REACTION sumatriptan [From Imitrex] Allergy (Intermediate, Verified 12/10/23 10:03) Anaphylaxis topiramate [From Topamax] Allergy (Intermediate, Verified 12/10/23 10:03) Numbness tramadol [TRAMADOL] Allergy (Intermediate, Verified 12/10/23 10:03) MIGRAINES, severe headaches (migraine); dry mouth trazodone Allergy (Intermediate, Verified 12/10/23 10:03) Migraine Pollen, dust Allergy (Unknown, Uncoded 12/10/23 10:03) Unknown sutures-post op Allergy (Unknown, Uncoded 12/10/23 10:03) infection vicodin Allergy (Unknown, Uncoded 12/10/23 10:03) dizziness, light headedness, ineffective Medication List - Last Reconciled 12/10/23 by Lonnie Arthur MD acetaminophen 1,000 mg PO Q8H fluconazole 150 mg PO DAILY 1 dose hydroxyzine HCl 10 mg PO TID PRN levonorgestrel (Mirena) intrauterine meclizine 25 mg PO QID PRN 30 days Tobacco use date assessed: 12/10/23 Dental Screening Dental Screen Date: 12/10/23 Did you have a dental visit in the last 12 months?: Yes Did you have a dental problem in the last 6 months where you did not have access to dental care?: No Was dental information given to patient?: Patient has dentist HPI Annual Exam HPI Details healthy [facility] Medical History Acute arthritis Anxiety Cholecystectomy planned Depression Migraine headache Sciatic leg pain Surgical History History of plastic surgery History of cholecystectomy [place] teeth extracted H/O LEEP History of sleeve gastrectomy History of right oophorectomy Family History Mother Diabetes Hypertension Chronic mental illness Father Medical history unknown Maternal Grandmother Diabetes Maternal Uncle Brain tumor Brother Asthma Son In good health Son In good health Maternal Grandfather Esophageal cancer Social History Household Members: Children Household Members Other:: sister Housing: House Patient Tobacco Use Status: Never used Tobacco e-Cigarette/Vaping Use: Never Used Second Hand Smoke Exposure: No service: No Current occupational status: employed Current occupation: [employer] Current occupational exposures/hazards: No Sexual orientation: Straight/Heterosexual Gender identity: Female Cognitive needs: No Hearing needs: No Vision needs: Yes Female Reproductive History Menstrual Age of Menarche: 11 Questionnaire PHQ-9 Over the last 2 weeks, how often have you been bothered by any of the following problems? 1. Little interest or pleasure in doing things: not at all 2. Feeling down, depressed, or hopeless: not at all 3. Trouble falling or staying asleep, or sleeping too much: not at all 4. Feeling tired or having little energy: not at all 5. Poor appetite or overeating: not at all 6. Feeling bad about yourself - or that you are a failure or have let yourself or your family down: not at all 7. Trouble concentrating on things, such as reading the newspaper or watching television: not at all 8. Moving or speaking so slowly that other people could have noticed. Or the opposite - being so fidgety or restless that you have been moving around a lot more than usual: not at all 9. Thoughts that you would be better off or of hurting yourself in some way: not at all Total score: 0 Depression Screening Interpretation: Negative Depression Screening Done: Yes 34953 - PHQ-9 Billing: Yes Source: Developed by Drs. Chaim Page, Madeleine Mohr, Jose Sow and colleagues, with an educational lara from [employer]. Thrive Questionnaire Date Thrive assessed: 12/10/23 I am a: Patient What is your living situation today?: I have a steady place to live Within the past 12 months, did the food you bought not last and you didn't have the money to get more?: Never true Within the past 12 months, did you worry whether your food would run out before you got money to buy more?: Never true Do you have trouble paying for medicines?: No Do you have trouble getting transportation to medical appointments?: No Do you have trouble paying your heating and electricity bill?: No Do you have trouble taking care of your child, family member or friend?: No Do you have trouble with day-to-day activities such as bathing, preparing meals, shopping, managing finances, etc.?: No Are you currently unemployed and looking for a job?: No Are you interested in more education?: No Please select the resources that you would like help with: None THRIVE Score: 0 AUDIT C Alcohol Use Questionnaire (AUDIT-C) 1. How often do you have a drink containing alcohol?: Monthly or less 2. How many drinks containing alcohol do you have on a typical day when you are drinking?: 1 or 2 Total Score: 1 Score Reviewed/Action Taken: Yes ZENON-7 AMB Questionnaire ZENON-7 Date ZENON - 7 assessed: 12/10/23 Feeling nervous, anxious, or on edge: 0 = Not at all Not being able to stop or control worryin = Not at all Worrying too much about different things: 0 = Not at all Trouble relaxin = Not at all Being so restless that it is hard to sit still: 0 = Not at all Becoming easily annoyed or irritable: 0 = Not at all Feeling afraid as if something awful might happen: 0 = Not at all Total ZENON-7 score (0-4 normal; 5-9 mild; 10-14 moderate; 15-21 severe): 0 Source: Developed by Drs. Chaim Page, Madeleine Mohr, Jose Sow and colleagues, with an educational lara from [employer]. Review of Systems Const Denies chills, Denies fatigue, Denies headache(s) and Denies weight loss Eyes Denies change in vision, Denies diplopia and Denies eye pain ENT Denies vertigo, Denies dizziness, Denies headache(s) and Denies nasal discharge Card Denies chest pain, Denies rapid heart rate and Denies dyspnea on exertion Resp Denies chest congestion, Denies cough, Denies pain with cough and Denies dyspnea on exertion GI Denies abdominal pain, Denies hematochezia and Denies change in bowel habits Musc Denies myalgias, Denies arthralgias and Denies joint swelling Skin/Breast Denies lesions and Denies unusual bruising Neuro Denies vertigo, Denies dizziness, Denies headache(s) and Denies focal weakness Endo Denies fatigue Physical exam (Primary Care) Vital Signs: Last Vital Signs Pulse 85 12/10/23 10:02 BP 124/80 12/10/23 10:02 Pulse Ox 99 12/10/23 10:02 Oxygen Delivery Method Room Air 12/10/23 10:02 BMI result Body Mass Index 30.2 Tobacco/Smoking Status: Tobacco use Status Tobacco use date assessed 12/10/23 12/10/23 10:11 Patient Tobacco Use Status Never used Tobacco 12/10/23 10:11 e-Cigarette/Vaping Use Never Used 12/10/23 10:11 PHQ-9: PHQ-9 Score PHQ-9: Total score 0 12/10/23 10:11 Depression Screening Interpretation: Negative Thrive Assessment: Date of Thrive Assessment Date Thrive assessed 12/10/23 12/10/23 10:11 Const General: cooperative, healthy appearing and no acute distress Orientation/consciousness: oriented to person, oriented to place and oriented to time [facility] Head: Yes normal to inspection, Yes normocephalic and Yes atraumatic Mouth: Normal oral and palatal mucosa present and tongue normal Throat: Yes posterior oropharynx normal and Yes uvula midline Eyes General: appearance normal, both eyes and all related structures Neck Neck: Yes normal visual inspection, Yes full ROM and Yes no lymphadenopathy Thyroid: Thyroid normal Carotids: normal carotid upstroke Chest Chest palpation & inspection: normal inspection of the chest Resp Effort & Inspection: normal respiratory effort and able to speak in complete sentences Auscultation: clear to auscultation bilaterally Cardio Jugular venous distension: no JVD Palpation: normal PMI Rate: regular rate Rhythm: regular rhythm Heart sounds: S1 normal heart sound present and S2 normal heart sound present GI Inspection: Yes normal to inspection Palpation (GI): Soft to palpation and No hepatosplenomegaly present Auscultation: normal bowel sounds General: Yes no CVA tenderness Back/Spine/Pelvis Back: no CVA tenderness Skin General skin exam: no rashes or lesions noted Neuro General: oriented to person, oriented to place and oriented to time Extrem General: Yes normal to inspection and Yes full ROM Assessment and Plan Assessment & Plan (1) Physical exam: Code(s): Z00.00 - Encounter for general adult medical examination without abnormal findings Plan: stable; do labs Orders: Orders Lipid Panel Today Z13.220 - Encounter for screening for lipoid disorders Complete Blood Count Auto Diff Today Z13.0 - Encounter for screening for d iseases of the blood and blood-forming organs and certain disorders involving the immune mechanism Comprehensive [place]. Panel Fast Today Z13.9 - Encounter for screening, unsp ecified Thyroid Stimulating Hormone Today Z13.29 - Encounter for screening for other suspected endocrine disorder Coding Level of Care Code Est Pt Prev Care 40-64y(65891) Diagnoses Physical exam Z00.00
== END 2023-12-10 10:19 | disposition home or self-care (01) ==
PROVIDERS: Visit Provider Internal Medicine
DX: Z00.00 Encounter for general adult medical examination without abnormal findings (principal)
CPT/HCPCS: 99396

== ENCOUNTER 2024-01-30 14:01 | Outpatient (AMB) | payer BC, SELFPAY ==
[2024-01-30 14:35] VITALS: BP 120/84; BMI 29.9
--- NOTE | 2024-01-30 14:35 | MHC.OFFVIS ---
Vital Signs 01/30/24 14:35 Height 5 ft 6 in Weight 185 lb 3.013 oz BMI 29.9 BP 120/84 Intake Visit Reasons: Annual/DO NOT RS Hide Splitter Required: Yes Hide Splitter Language: Claims Vice President Services: Hide Splitter Present (in person) Hide Splitter Name: Lillian AVENDANO Information Interpreted: non-clinical & clinical Stock Chaser: Stock Chaser Present (Lillian AVENDANO) Accompanied by: Self / Same As Patient Allergies BuSpar Allergy (Intermediate, Verified 01/30/24 14:39) hives buspirone [From BUSPAR] Allergy (Intermediate, Verified 01/30/24 14:39) HIVES fentanyl [FENTANYL] Allergy (Intermediate, Verified 01/30/24 14:39) FENTANYL DURING SURGERY UNKNOWN REACTION sumatriptan [From Imitrex] Allergy (Intermediate, Verified 01/30/24 14:39) Anaphylaxis topiramate [From Topamax] Allergy (Intermediate, Verified 01/30/24 14:39) Numbness tramadol [TRAMADOL] Allergy (Intermediate, Verified 01/30/24 14:39) MIGRAINES, severe headaches (migraine); dry mouth trazodone Allergy (Intermediate, Verified 01/30/24 14:39) Migraine Pollen, dust Allergy (Unknown, Uncoded 01/30/24 14:39) Unknown sutures-post op Allergy (Unknown, Uncoded 01/30/24 14:39) infection vicodin Allergy (Unknown, Uncoded 01/30/24 14:39) dizziness, light headedness, ineffective Is last menstrual period known: Yes Last menstrual period: 01/24/24 HPI Comments Details: Presenting for annual exam. No complaints. Last Pap/HPV was negative in 12/15 Last Mammogram was BI-RADS 1 in 04/16 [facility] Medical History Cholecystectomy planned Migraine headache Sciatic leg pain Acute arthritis Depression Anxiety Surgical History History of plastic surgery History of cholecystectomy [place] teeth extracted H/O LEEP History of sleeve gastrectomy History of right oophorectomy Family History Mother Diabetes Hypertension Chronic mental illness Father Medical history unknown Maternal Grandmother Diabetes Maternal Uncle Brain tumor Brother Asthma Son In good health Son In good health Maternal Grandfather Esophageal cancer Social History Household Members: Children Household Members Other:: sister Housing: House Patient Tobacco Use Status: Never used Tobacco e-Cigarette/Vaping Use: Never Used Second Hand Smoke Exposure: No service: No Current occupational status: employed Current occupation: [employer] Current occupational exposures/hazards: No Sexual orientation: Straight/Heterosexual Gender identity: Female Cognitive needs: No Hearing needs: No Vision needs: Yes Female Reproductive History Menstrual Age of Menarche: 11 Date of last menstrual period: 01/24/24 Total pregnancies: 2 Full term: 2 Number of Living Children: 2 Date of last pap smear: 12/18/22 Date of Mammogram: 04/16/23 Review of Systems Const All systems reviewed & are unremarkable except as noted in HPI and below Card Reports as per HPI Resp Reports as per HPI GI Reports as per HPI and Reports no additional complaints Reports as per HPI Physical Exam Vital Signs: Last Vital Signs BP 120/84 01/30/24 14:35 BMI result Body Mass Index 29.9 Const General: cooperative, healthy appearing and comfortable Chest Chest palpation & inspection: normal inspection of the chest and normal palpation of entire chest wall Breast/axilla inspection: normal inspection of the breasts and normal inspection of the axillae Breast/axilla palpation: normal palpation of the breasts, normal palpation of the axillae and no axillary lymphadenopathy Resp Effort & Inspection: normal respiratory effort Auscultation: clear to auscultation bilaterally Percussion: percussion normal Cardio Palpation: normal PMI Rate: regular rate Rhythm: regular rhythm Heart sounds: no murmurs and no rubs Peripheral pulses: Peripheral pulses 2+ throughout GI Inspection: Yes normal to inspection Palpation (GI): Soft to palpation, nontender, no guarding, not rigid and No hepatosplenomegaly present Percussion: Yes normal to percussion Auscultation: normal bowel sounds Rectal Exam - Female: deferred General: Yes bladder normal to palpation External Female Exam: No lesion Speculum Exam - Vagina: normal appearance of the vagina, normal palpation, normal vaginal discharge and not erythematous Speculum Exam - Cervix: normal appearance of the cervix and normal palpation Bimanual exam- vagina & uterus: normal bimanual exam, normal palpation, uterine size normal, bladder normal to palpation, consistency normal and normal palpation Bimanual Exam- Adnexa, other: normal adnexae, no masses and no tenderness Assessment & Plan Assessment & Plan (1) Well woman exam: Comment: History of BILLY 2 in 2013 status post LEEP Code(s): Z01.419 - Encounter for gynecological examination (general) (routine) without abnormal findings Category: Medical Plan: Cotesting not indicated this year. Instructions given the patient to schedule next screening Mammogram in 04/17. Counseled the patient about the recommended dietary allowance of 1000 mg of Calcium & 600 IU of vitamin D. The patient was instructed to perform monthly self-breast exams and to schedule an annual exam in a year; All questions answered and the patient verbalized understanding. Instructed the patient to schedule annual exam in a year Coding Level of Care Code Est Pt Prev Care 40-64y(29244) Diagnoses Well woman exam Z01.419
== END 2024-01-30 14:47 | disposition home or self-care (01) ==
LOC: HO.HWS 14:01
PROVIDERS: PCP Internal Medicine; Visit Provider Obstetrics & Gynecology
DX: Z01.419 Encounter for gynecological examination (general) (routine) without abnormal findings (principal)
CPT/HCPCS: 99396

== ENCOUNTER → 2024-01-30 14:01 | Outpatient (BNVA) | payer BC, SELFPAY | PROVIDERS: PCP Internal Medicine; Visit Provider Obstetrics & Gynecology ==

== ENCOUNTER 2024-04-21 12:59 | Outpatient (REF) | payer BC, SELFPAY ==
--- NOTE | ~2024-04-21 | MM_ITS ---
EXAMINATION: MM SCREENING DIGITAL BREAST TOMOSYNTHESIS, BILATERAL CLINICAL INFORMATION: Screening. Asymptomatic. COMPARISON: Mammography: Comparison is made with available priors TECHNIQUE: Digital breast mammography with tomosynthesis is performed in both the craniocaudal and mediolateral oblique views along with computer-aided detection (CAD). FINDINGS: There are scattered areas of fibroglandular density (ACR BI-RADS breast composition Category b). There are no significant masses, abnormal calcifications, or other abnormalities. MM/MM tomosynthesis screening BI IMPRESSION: No mammographic evidence of malignancy. ASSESSMENT: BI-RADS BI-RADS 1 - Negative RECOMMENDATION: Routine annual mammography screening. 1 year F/U This examination should not preclude the clinical evaluation of a suspicious palpable abnormality. This patient's information was entered into a reminder system with a target due date for their next mammogram. Electronically signed by: Farheen Gauthier DO 04/29/2024 03:09 PM [facility]
== END 2024-04-21 13:00 | disposition home or self-care (01) ==
LOC: HO.MAMMO 12:59
PROVIDERS: PCP Internal Medicine; Visit Provider Internal Medicine
DX: Z12.31 Encounter for screening mammogram for malignant neoplasm of breast (principal)
CPT/HCPCS: 77063; 77067

== ENCOUNTER → 2024-04-21 13:15 | Outpatient (BNV) | payer BC, SELFPAY | PROVIDERS: PCP Internal Medicine; Visit Provider Internal Medicine | DX: Z12.31 Encounter for screening mammogram for malignant neoplasm of breast (principal) | CPT/HCPCS: 77063; 77067 ==

== ENCOUNTER 2024-05-28 08:31 | Emergency (ER) | payer BC, SELFPAY ==
--- NOTE | ~2024-05-28 | XR_ITS ---
EXAMINATION: XR SHOULDER, RIGHT CLINICAL INFORMATION: pain COMPARISON: None available. TECHNIQUE: AP external rotation, Grashey, scapular Y, and axillary views of the right shoulder. FINDINGS: Mild spurring at the AC joint. No fracture, dislocation, or destructive process. XR/XR shoulder RT min 2V IMPRESSION: No acute findings. Electronically signed by: Inderjit Pinto MD 05/28/2024 01:14 PM [facility]
[2024-05-28 08:34] VITALS: BP 139/67; PULSE 101; RESP 20; TEMP 36.4; O2SAT 97; BMI 30.9
--- NOTE | 2024-05-28 09:57 | ED_ITS ---
HPI - Extremity Problem General Chief complaint: Extremity Injury, Upper Stated complaint: R arm pain Time Seen by Provider: 05/28/24 09:56 Source: patient and RN notes reviewed Mode of arrival: ambulatory Limitations: no limitations History of Present Illness ED Provider: Patricia Miller PA-C HPI Narrative: This is a 39-year-old female, with a history of disc herniations, who presents to the emergency department with complaints of right shoulder pain x2 weeks. Patient states that about 2 weeks ago she lifted a heavy TV and felt a popping sensation in her right shoulder. She states that she had increased pain. She states that over the last several days her pain has only increased and now she has some numbness and tingling down her right arm. She denies history of shoulder trouble in the past. She states that prior to this injury, she had muscle spasms in her back which she typically has however reports that the increased heavy lifting caused her symptoms to worsened. She denies any chest pain or shortness of breath. She has been taking ibuprofen and Tylenol with minimal relief. Denies any other complaints or concerns at this time. MD Complaint: extremity pain Onset (ago): day(s) Pain Consistency: constant Quality: burning and aching Radiation: distal Relieving factors: rest Exacerbating factors: range of motion and palpation Associated symptoms: denies other symptoms Related Data Home Medications ?Medication ?Instructions ?Recorded ?Confirmed acetaminophen 500 mg tablet 1,000 mg PO Q8H 07/14/20 12/10/23 levonorgestrel 21 mcg/24 hr (up to intrauterine 07/14/20 12/10/23 8 years) 52 mg intrauterine device (Mirena) Previous Rx's ?Medication ?Instructions ?Recorded fluconazole 150 mg tablet 150 mg PO DAILY 1 dose #1 tab 06/21/23 meclizine 25 mg tablet 25 mg PO QID PRN dizziness 30 days 06/28/23 #30 tabs hydroxyzine HCl 10 mg tablet 10 mg PO TID PRN itching #90 tabs 12/17/23 acetaminophen 650 mg 650 mg PO Q8H PRN pain #30 tabs 05/28/24 tablet,extended release (Tylenol 8 Hour) ibuprofen 600 mg tablet 600 mg PO Q6H PRN pain #30 tabs 05/28/24 methocarbamol 750 mg tablet 750 mg PO TID 3 days #9 tabs 05/28/24 Allergies Allergy/AdvReac Type Severity Reaction Status Date / Time BuSpar Allergy Intermediate hives Verified 05/28/24 08:37 buspirone [From BUSPAR] Allergy Intermediate HIVES Verified 05/28/24 08:37 fentanyl [FENTANYL] Allergy Intermediate FENTANYL Verified 05/28/24 08:37 DURING SURGERY UNKNOWN REACTION sumatriptan [From Imitrex] Allergy Intermediate Anaphylaxis Verified 05/28/24 08:37 topiramate [From Topamax] Allergy Intermediate Numbness Verified 05/28/24 08:37 tramadol [TRAMADOL] Allergy Intermediate MIGRAINES, Verified 05/28/24 08:37 severe headaches (migraine); dry mouth trazodone Allergy Intermediate Migraine Verified 05/28/24 08:37 bupropion [From Wellbutrin] Allergy Palpitation Verified 05/28/24 08:38 s Pollen, dust Allergy Unknown Unknown Uncoded 01/30/24 14:39 sutures-post op Allergy Unknown infection Uncoded 01/30/24 14:39 vicodin Allergy Unknown dizziness, Uncoded 01/30/24 14:39 light headedness, ineffective Review of Systems Review of Systems: Yes all other systems are reviewed and are negative Constitutional: Constitutional: Reports as per [facility] Past Medical History Attestation statement: The following information was validated with the patient. Medical History Cholecystectomy planned Migraine headache Sciatic leg pain Acute arthritis Depression Anxiety Surgical History History of plastic surgery History of cholecystectomy [place] teeth extracted H/O LEEP History of sleeve gastrectomy History of right oophorectomy Family History Family History Mother Diabetes Hypertension Chronic mental illness Father Medical history unknown Maternal Grandmother Diabetes Maternal Uncle Brain tumor Brother Asthma Son In good health Son In good health Maternal Grandfather Esophageal cancer Social History Social History Household Members: Children Household Members Other:: sister Housing: House Patient Tobacco Use Status: Never used Tobacco e-Cigarette/Vaping Use: Never Used Second Hand Smoke Exposure: No Advance Directives: No Advance Directives Information Provided: Yes Do you have a plan to hurt others: No Plan service: No Current occupational status: employed Current occupation: [employer] Current occupational exposures/hazards: No Sexual orientation: Straight/Heterosexual Gender identity: Female Cognitive needs: No Hearing needs: No Vision needs: Yes Physical Exam Vital Signs: Vital Signs: Last Vital Signs Temp 97.2 F 05/28/24 12:43 Pulse 72 05/28/24 12:43 Resp 16 05/28/24 12:43 BP 113/64 05/28/24 12:43 Pulse Ox 97 05/28/24 12:43 O2 Del Method Room Air 05/28/24 12:43 BMI result Body Mass Index 30.9 Const: General: cooperative, comfortable and no acute distress Orientation/consciousness: patient oriented x3 Limitations: no limitations HEENT: Head: Yes normal to inspection, Yes normocephalic and Yes atraumatic Ears: hearing grossly normal bilaterally General nose exam: Normal external nose present Face and sinus: Yes normal facial exam Mouth: Normal oral and palatal mucosa present, oropharynx normal and moist mucous membranes Throat: Yes posterior oropharynx normal Eyes: General: appearance normal, both eyes and all related structures Eyelids: Yes eyelids normal Conjunctivae: conjunctivae normal Sclerae: sclerae normal Pupils: Equal, round and reactive pupils present EOM: EOMs intact bilaterally Neck: Neck: Yes normal visual inspection, Yes full ROM and Yes no lymph adenopathy Lymphatic: no lymphadenopathy noted Chest: Chest palpation & inspection: normal inspection of the chest Resp: Effort & Inspection: normal respiratory effort and able to speak in complete sentences Auscultation: clear to auscultation bilaterally, no crackles, no rales, no rhonchi and no wheezes Cardio: Rate: regular rate Rhythm: regular rhythm Heart sounds: S1 normal heart sound present and S2 normal heart sound present GI: Inspection: Yes normal to inspection Skin: General skin exam: no rashes or lesions noted Trauma: no lacerations or abrasions Wounds: no wounds Neuro: General: patient oriented x3 and moves all extremities Cranial nerves: Yes Equal, round and reactive pupils present Extrem: Other: Right shoulder with no obvious bony deformity or swelling. Right shoulder with without any point tenderness. Full passive range of motion of the right shoulder and right elbow. Patient with muscle spasm noted overlying the right trapezius. Lift-off. Negative drop-arm test General: Yes normal to inspection Right upper extremity: normal to inspection Left upper extremity: normal to inspection Right lower extremity: normal to inspection Left lower extremity: normal to inspection Course Reevaluation(s) Reevaluation #1: X-ray returns, she has no acute bony abnormality seen on imaging. Discussed findings with patient. She states that she is nauseous after receiving the morphine however pain has slightly improved. Patient will be discharged with follow-up with Orthopedics. Patient has muscle spasm which we are treating with muscle relaxants. Also unclear if this is a ligamentous injury therefore will follow-up with orthopedics for further management. Given strict return precautions. Patient stable for discharge. Time: 13:29 Medications Administered Discontinued Medications Generic Name Dose Route Start Last Admin Trade Name Freq PRN Reason Stop Dose Admin Diazepam 2 mg 05/28/24 10:05/28/24 10:33 Diazepam 2 Mg Tablet PO 05/28/24 10:05 2 mg ONCE ONE Administration Ketorolac Tromethamine 30 mg 05/28/24 10:05/28/24 10:32 Ketorolac Tromethamine 30 Mg/Ml Vial IM 05/28/24 10:05 30 mg ONCE ONE Administration Lidocaine 1 patch 05/28/24 10:04 05/28/24 10:33 Lidocaine 4 % Patch Adh..Patch TRANSDERMA 05/28/24 10:05 1 patch ONCE ONE Administration Protocol Morphine Sulfate 15 mg 05/28/24 12:05 05/28/24 12:35 Morphine Sulfate Immed Release 15 Mg Tablet PO 05/28/24 12:06 15 mg ONCE ONE Administration Medical Decision Making Medical Decision Making MDM Narrative: This is a 39-year-old female, with a history of disc herniations, who presents emergency department with complaints of right upper back, and right shoulder pain x2 weeks. On arrival, patient is slightly tachycardic at 1:01 a.m., likely secondary to pain. Patient has holding right arm. Patient with obvious muscle spasms noted overlying the right trapezius muscle, she has full passive range of motion of the right shoulder. Strong radial pulse. No obvious bony deformity or swelling. X-ray of the right shoulder was obtained. Will medicate patient with Toradol, lidocaine patch, and Valium. We will continue to closely monitor pending x-ray report Differential Diagnosis Differential Diagnoses: The differential diagnosis associated with the presentation includes AC joint separation, ligamentous injury, rotator cuff tear, muscle spasm, adhesive capsulitis Admission/Observation Consideration of admission/observation: Escalation of care including admission/observation considered Lab Data MDM Lab Attestation statement: I reviewed the patient's lab results. Radiology Impression Discussion of test interpretation with radiology: I have reviewed the radiologist's reading. Radiologist Impression: EXAMINATION: XR SHOULDER, RIGHT CLINICAL INFORMATION: pain COMPARISON: None available. TECHNIQUE: AP external rotation, Grashey, scapular Y, and axillary views of the right shoulder. FINDINGS: Mild spurring at the AC joint. No fracture, dislocation, or destructive process. XR/XR shoulder RT min 2V IMPRESSION: No acute findings. Electronically signed by: Inderjit Pinto MD 05/28/2024 01:14 PM [facility] [place] Dictated By: Inderjit Pinto MD Signed By: <Electronically signed Discharge Plan Discharge Clinical Impression: Spasm of right trapezius muscle, Shoulder pain, right Patient Disposition: Home, Self-Care Instructions: Muscle Spasm (ED), Shoulder Pain (ED) Additional Instructions: You were seen in the emergency department due to right shoulder and right upper back pain. You have signs and symptoms of muscle spasm. It is unclear if you tore any ligaments in your right shoulder also contributing to your pain. Gentle stretching, massage, heat, can help with your symptoms. Alternate between ibuprofen and Tylenol can also help. I am also prescribing a muscle relaxants also known as Robaxin. Please take as prescribed. Please be aware that this can cause drowsiness, do not drink alcohol or drive while taking this medication. Follow-up with the orthopedic radiologic technologist, call today to make an appointment. Your x-ray of your right shoulder does not show any bony abnormalities. If any new or worsening symptoms occur including but not limited to worsening pain, chest pain, shortness of breath, please seek emergent care. Prescriptions: New methocarbamol 750 mg tablet 750 mg PO TID 3 Days Qty: 9 0RF acetaminophen [Tylenol 8 Hour] 650 mg tablet extended release 650 mg PO Q8H PRN (Reason: pain) Qty: 30 0RF ibuprofen 600 mg tablet 600 mg PO Q6H PRN (Reason: pain) Qty: 30 0RF No Action fluconazole 150 mg tablet 150 mg PO DAILY Qty: 1 0RF Rx Instructions: administer on day 1 of therapy meclizine 25 mg tablet 25 mg PO QID PRN (Reason: dizziness) 30 Days Qty: 30 2RF hydroxyzine HCl 10 mg tablet 10 mg PO TID PRN (Reason: itching) Qty: 90 3RF acetaminophen 500 mg tablet 1,000 mg PO Q8H Mirena 20 mcg/24 hours (6 yrs) 52 mg intrauterine device intrauterine Print Language: Kyrgyz
[2024-05-28] MEDS: Ketorolac Tromethamine 30 MG/ML VIAL IM (10:32)
[2024-05-28] MEDS: Lidocaine 4 % Patch ADH..PATCH 1 PATCH TRANSDERMA (10:33)
[2024-05-28] MEDS: diazePAM 2 MG TABLET PO (10:33)
[2024-05-28] MEDS: Morphine Sulfate Immed Release 15 MG TABLET PO (12:35)
[2024-05-28 12:43] VITALS: BP 113/64; PULSE 72; RESP 16; TEMP 36.2; O2SAT 97
[2024-05-28] MEDS: Ondansetron ODT 4 MG TAB.RAPDIS TRANSLINGU (13:37)
[2024-05-28 13:38] VITALS: BP 113/64; PULSE 72; RESP 16; TEMP 36.2; O2SAT 97
== END 2024-05-28 13:40 | disposition home or self-care (01) ==
PROVIDERS: Emergency Provider Emergency Medicine; PCP Internal Medicine
DX: M62.838 Other muscle spasm (principal); M25.511 Pain in right shoulder
CPT/HCPCS: 73030; 96372; 99283; 99284; J1885

== ENCOUNTER 2024-05-30 10:31 | Outpatient (AMB) | payer BC, SELFPAY ==
--- NOTE | 2024-05-30 11:30 | AM.OFFWIN_ITS ---
Intake Vital Signs 05/30/24 11:31 Height 5 ft 6 in Weight 189 lb BMI 30.5 BP 118/76 Blood Pressure Location Lt brachial Position Sitting Pulse 70 Pulse Source Pulse Oximeter Pulse Oximetry (%) 100 Oxygen Delivery Method Room Air Intake Visit Reasons: EP severe RT arm nerve pain Intake Note: Patient here for severe right arm nerve pain that has been present for about 1-2 weeks Patient Tobacco Use Status: Never used Tobacco Allergies BuSpar Allergy (Intermediate, Verified 05/30/24 11:32) hives buspirone [From BUSPAR] Allergy (Intermediate, Verified 05/30/24 11:32) HIVES fentanyl [FENTANYL] Allergy (Intermediate, Verified 05/30/24 11:32) FENTANYL DURING SURGERY UNKNOWN REACTION sumatriptan [From Imitrex] Allergy (Intermediate, Verified 05/30/24 11:32) Anaphylaxis topiramate [From Topamax] Allergy (Intermediate, Verified 05/30/24 11:32) Numbness tramadol [TRAMADOL] Allergy (Intermediate, Verified 05/30/24 11:32) MIGRAINES, severe headaches (migraine); dry mouth trazodone Allergy (Intermediate, Verified 05/30/24 11:32) Migraine bupropion [From Wellbutrin] Allergy (Verified 05/30/24 11:32) Palpitations Pollen, dust Allergy (Unknown, Uncoded 05/30/24 11:32) Unknown sutures-post op Allergy (Unknown, Uncoded 05/30/24 11:32) infection vicodin Allergy (Unknown, Uncoded 05/30/24 11:32) dizziness, light headedness, ineffective Medication List - Last Reconciled 05/30/24 by Otoniel York MD acetaminophen 1,000 mg PO Q8H acetaminophen ER (Tylenol 8 Hour) 650 mg PO Q8H PRN hydroxyzine HCl 10 mg PO TID PRN ibuprofen 600 mg PO Q6H PRN levonorgestrel (Mirena) intrauterine lorazepam 0.5 mg PO DAILY meclizine 25 mg PO QID PRN 30 days Do you need a note to return to daycare/school/sports/work: Yes HPI EP severe RT arm nerve pain HPI Details Patient is a 39-year-old female has already been to emergency room for this problem 2 days ago She says that about 10 days ago she started having pain right upper back radiating to shoulder And then she did some heavy lifting and started having severe pain right arm which is shooting in nature At time she feeling weak in her hand In emergency room she had shoulder x-ray which was within normal limit she was referred to orthopedic from emergency room She came in today as she continued to have the pain On examination she has full range of motion in the neck and full range of motion in shoulder Motor strength is equal both hands Sensory intact I am treating her with prednisone 20 mg for 5 days She may continue ibuprofen with food Muscle relaxer changed to baclofen 20 mg And I have added gabapentin as well 100 mg She has a primary care appointment coming up next week on Sunday [facility] Medical History Cholecystectomy planned Migraine headache Sciatic leg pain Acute arthritis Depression Anxiety Surgical History History of plastic surgery History of cholecystectomy [place] teeth extracted H/O LEEP History of sleeve gastrectomy History of right oophorectomy Family History Mother Diabetes Hypertension Chronic mental illness Father Medical history unknown Maternal Grandmother Diabetes Maternal Uncle Brain tumor Brother Asthma Son In good health Son In good health Maternal Grandfather Esophageal cancer Social History Household Members: Children Household Members Other:: sister Housing: House Patient Tobacco Use Status: Never used Tobacco e-Cigarette/Vaping Use: Never Used Second Hand Smoke Exposure: No service: No Current occupational status: employed Current occupation: [employer] Current occupational exposures/hazards: No Sexual orientation: Straight/Heterosexual Gender identity: Female Cognitive needs: No Hearing needs: No Vision needs: Yes Female Reproductive History Menstrual Age of Menarche: 11 Review of Systems Const All systems reviewed & are unremarkable except as noted in HPI and below Physical Exam Vital Signs: Last Vital Signs Pulse 70 05/30/24 11:31 BP 118/76 05/30/24 11:31 Pulse Ox 100 05/30/24 11:31 Oxygen Delivery Method Room Air 05/30/24 11:31 BMI result Body Mass Index 30.5 Const General: no acute distress Orientation/consciousness: patient oriented x3 Eyes General: appearance normal, both eyes and all related structures Neck Neck: Yes supple Resp Effort & Inspection: normal respiratory effort and able to speak in complete sentences Neuro Other: Motor sensory intact General: patient oriented x3 Extrem Other: Both shoulders with full range of motion Psych Mental Status: mental status grossly normal Assessment & Plan Assessment & Plan (1) Radiculitis of right cervical region: Code(s): M54.12 - Radiculopathy, cervical region Plan Patient is a 39-year-old female has already been to emergency room for this problem 2 days ago She says that about 10 days ago she started having pain right upper back radiating to shoulder And then she did some heavy lifting and started having severe pain right arm which is shooting in nature At time she feeling weak in her hand In emergency room she had shoulder x-ray which was within normal limit she was referred to orthopedic from emergency room She came in today as she continued to have the pain On examination she has full range of motion in the neck and full range of motion in shoulder Motor strength is equal both hands Sensory intact I am treating her with prednisone 20 mg for 5 days She may continue ibuprofen with food Muscle relaxer changed to baclofen 20 mg And I have added gabapentin as well 100 mg She has a primary care appointment coming up next week on Sunday Medications: New gabapentin 100 mg PO BEDTIME 14 caps 0RF baclofen 20 mg PO BEDTIME 10 tabs 0RF prednisone 20 mg PO DAILY 5 days 5 tabs 0RF Discontinued methocarbamol Discontinued Reason: Doctor's Order 750 mg PO TID 3 days 9 tabs 0RF Coding Level of Care Code Est Pt Level 4 (07217) Diagnoses Radiculitis of right cervical region M54.12
[2024-05-30 11:31] VITALS: BP 118/76; PULSE 70; O2SAT 100; BMI 30.5
== END 2024-05-30 12:27 | disposition home or self-care (01) ==
PROVIDERS: PCP Internal Medicine; Visit Provider Internal Medicine
DX: M54.12 Radiculopathy, cervical region (principal)

== ENCOUNTER 2024-06-03 11:29 | Outpatient (REF) | payer BC, SELFPAY | END 2024-06-03 11:30 | disposition home or self-care (01) | LOC: HO.XRAY 11:29 | PROVIDERS: PCP Internal Medicine; Visit Provider Internal Medicine | DX: M54.2 Cervicalgia (principal); M54.12 Radiculopathy, cervical region | CPT/HCPCS: 72040; 96127 ==

== ENCOUNTER 2024-06-03 11:29 | Outpatient (AMB) | payer BC, SELFPAY ==
[2024-06-03 11:30] VITALS: BP 130/72; PULSE 68; O2SAT 98; BMI 30.8
--- NOTE | 2024-06-03 11:30 | A.OFFPC_ITS ---
Vital Signs 06/03/24 11:30 Height 5 ft 6 in Weight 191 lb BMI 30.8 BP 130/72 Blood Pressure Location Lt brachial Position Sitting Pulse 68 Pulse Source Pulse Oximeter Pulse Oximetry (%) 98 Oxygen Delivery Method Room Air Intake Visit Reasons: nerve pain Allergies BuSpar Allergy (Intermediate, Verified 06/03/24 11:31) hives buspirone [From BUSPAR] Allergy (Intermediate, Verified 06/03/24 11:31) HIVES fentanyl [FENTANYL] Allergy (Intermediate, Verified 06/03/24 11:31) FENTANYL DURING SURGERY UNKNOWN REACTION sumatriptan [From Imitrex] Allergy (Intermediate, Verified 06/03/24 11:31) Anaphylaxis topiramate [From Topamax] Allergy (Intermediate, Verified 06/03/24 11:31) Numbness tramadol [TRAMADOL] Allergy (Intermediate, Verified 06/03/24 11:31) MIGRAINES, severe headaches (migraine); dry mouth trazodone Allergy (Intermediate, Verified 06/03/24 11:31) Migraine bupropion [From Wellbutrin] Allergy (Verified 06/03/24 11:31) Palpitations Pollen, dust Allergy (Unknown, Uncoded 06/03/24 11:31) Unknown sutures-post op Allergy (Unknown, Uncoded 06/03/24 11:31) infection vicodin Allergy (Unknown, Uncoded 06/03/24 11:31) dizziness, light headedness, ineffective Medication List - Last Reconciled 06/04/24 by Lonnie Arthur MD acetaminophen 1,000 mg PO Q8H acetaminophen ER (Tylenol 8 Hour) 650 mg PO Q8H PRN baclofen 20 mg PO BEDTIME gabapentin 100 mg PO BEDTIME hydroxyzine HCl 10 mg PO TID PRN ibuprofen 600 mg PO Q6H PRN levonorgestrel (Mirena) intrauterine lorazepam 0.5 mg PO DAILY meclizine 25 mg PO QID PRN 30 days prednisone 20 mg PO DAILY 5 days Tobacco use date assessed: 06/03/24 Dental Screening Dental Screen Date: 12/10/23 HPI nerve pain HPI Details right paracervical pain radiating down right arm for a while PFSH Medical History Cholecystectomy planned Migraine headache Sciatic leg pain Acute arthritis Depression Anxiety Surgical History History of plastic surgery History of cholecystectomy [place] teeth extracted H/O LEEP History of sleeve gastrectomy History of right oophorectomy Family History Mother Diabetes Hypertension Chronic mental illness Father Medical history unknown Maternal Grandmother Diabetes Maternal Uncle Brain tumor Brother Asthma Son In good health Son In good health Maternal Grandfather Esophageal cancer Social History Household Members: Children Household Members Other:: sister Housing: House Patient Tobacco Use Status: Never used Tobacco Tobacco use type: Cigarette e-Cigarette/Vaping Use: Never Used Second Hand Smoke Exposure: No service: No Current occupational status: employed Current occupation: [employer] Current occupational exposures/hazards: No Sexual orientation: Straight/Heterosexual Gender identity: Female Cognitive needs: No Hearing needs: No Vision needs: Yes Female Reproductive History Menstrual Age of Menarche: 11 Questionnaire PHQ-9 Over the last 2 weeks, how often have you been bothered by any of the following problems? 1. Little interest or pleasure in doing things: not at all 2. Feeling down, depressed, or hopeless: not at all 3. Trouble falling or staying asleep, or sleeping too much: not at all 4. Feeling tired or having little energy: not at all 5. Poor appetite or overeating: not at all 6. Feeling bad about yourself - or that you are a failure or have let yourself or your family down: not at all 7. Trouble concentrating on things, such as reading the newspaper or watching television: not at all 8. Moving or speaking so slowly that other people could have noticed. Or the opposite - being so fidgety or restless that you have been moving around a lot more than usual: not at all 9. Thoughts that you would be better off or of hurting yourself in some way: not at all Total score: 0 Depression Screening Interpretation: Negative Depression Screening Done: Yes 30414 - PHQ-9 Billing: Yes Source: Developed by Drs. Chaim Page, Madeleine Mohr, Jose Sow and colleagues, with an educational lara from [employer]. Thrive Questionnaire Date Thrive assessed: 12/10/23 AUDIT C Alcohol Use Questionnaire (AUDIT-C) 2. How many drinks containing alcohol do you have on a typical day when you are drinking?: 1 or 2 3. How often do you have six or more drinks on one occasion?: Never Total Score: 0 ZENON-7 AMB Questionnaire ZENON-7 Date ZENON - 7 assessed: 12/10/23 Source: Developed by Drs. Chaim Page, Madeleine Mohr, Jose Sow and colleagues, with an educational lara from [employer]. Review of Systems Const Denies chills, Denies headache(s) and Denies weight loss ENT Denies headache(s) Card Denies chest pain, Denies syncope, Denies irregular heart rhythm and Denies dyspnea Resp Denies chest congestion, Denies cough and Denies dyspnea GI Denies abdominal pain, Denies change in stool character, Denies nausea and Denies vomiting Musc Denies deformity and Denies joint swelling Neuro Denies syncope and Denies headache(s) Physical exam (Primary Care) Vital Signs: Last Vital Signs Pulse 68 06/03/24 11:30 BP 130/72 06/03/24 11:30 Pulse Ox 98 06/03/24 11:30 Oxygen Delivery Method Room Air 06/03/24 11:30 BMI result Body Mass Index 30.8 Tobacco/Smoking Status: Tobacco use Status Tobacco use date assessed 06/03/24 06/03/24 11:35 Patient Tobacco Use Status Never used Tobacco 06/03/24 11:35 Tobacco use type Cigarette 06/03/24 11:35 e-Cigarette/Vaping Use Never Used 06/03/24 11:35 PHQ-9: PHQ-9 Score PHQ-9: Total score 0 06/03/24 11:35 Depression Screening Interpretation: Negative Thrive Assessment: Date of Thrive Assessment Date Thrive assessed 12/10/23 06/03/24 11:35 Const General: cooperative, comfortable, no acute distress and alert Neck Neck: Yes no lymphadenopathy Thyroid: Thyroid normal Resp Effort & Inspection: normal respiratory effort Auscultation: clear to auscultation bilaterally Percussion: percussion normal Cardio Jugular venous distension: no JVD Palpation: normal PMI Rate: regular rate Rhythm: regular rhythm Heart sounds: S1 normal heart sound present and S2 normal heart sound present GI Inspection: Yes normal to inspection Palpation (GI): No hepatosplenomegaly present Skin General skin exam: no rashes or lesions noted Extrem General: Yes no clubbing, cyanosis or edema Coding Level of Care Code Est Pt Level 3 (99418) Diagnoses Radiculitis of right cervical region M54.12 Additional Codes PHQ-9 - 51516 - PHQ-9 Billing: Yes ([id number]) Assessment & Plan Assessment & Plan (1) Radiculitis of right cervical region: Code(s): M54.12 - Radiculopathy, cervical region Category: Medical Plan: PT ordered Orders: Orders XR cervical spine 2V 06/03/24 M54.2 - Cervicalgia PT Evaluation and Treatment 06/03/24 M54.12 - Radiculopathy, cervical region
== END 2024-06-03 11:48 | disposition home or self-care (01) ==
PROVIDERS: PCP Internal Medicine; Visit Provider Internal Medicine
DX: M54.12 Radiculopathy, cervical region (principal)

== ENCOUNTER 2024-08-06 10:00 | Outpatient (RCR) | payer BC, SELFPAY ==
--- NOTE | 2024-07-16 10:50 | MHC.PT.EP ---
[facility] [place] Office [place] Office [place] Office [address] Randee Price [address] [phone] F: [phone] F: [phone] F: [phone] F: [phone] Physical Therapy Plan of Care Date of Evaluation: 07/16/24 Date of Surgery: n/a Diagnosis: cervical radiculpathy Assessment: Patient is a 39 year old female presenting to PT with complaints of pain in her neck. Pt reports onset of pain began about 2 months ago due to lifting a tv. She presents today with impairments in pain, radicular sx, cervical ROM, posture. 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 Pt expresses usp goal of reducing pain, and is motivated to work towards this in PT. Clinical presentation today is most consistent with signs and sx associated with neck pain and pt will benefit from skilled PT 2 week x 4 weeks to address the following problems and impairments noted upon evaluation: pain, radicular sx, cervical ROM, posture. These problems limit the patient with the following functional activities: work, ADLs, reaching, lifting, sleeping. The prescribed treatment plan of care is medically necessary. Co-morbidities of none were identified and taken into considerations of plan of care. Pt was educated on HEP, role of PT, prognosis, POC. Frequency and Duration: The patient will be seen 2 x week x 4 weeks Short Term Goals: Pt will demonstrate centralization of sx in 2 weeks. Pt will demonstrate cervical ROM without pain or sx in 2 weeks. Senior Site Manager Goals: Pt will demonstrate improved NDI score by 10% in 4 weeks for improved functional mobility. Pt will demonstrate ability to work a full day with min to no pain in 4 weeks for return to PLOF. Pt will demonstrate ability to reach and lift household items with min to no pain in 4 weeks for return to PLOF. Treatment Plan: Modalities to reduce pain, spasms and effusion. Manual therapy to restore motion and function. Therapeutic exercise to improve strength and flexibility. Neuromuscular re-education for posture and balance. Therapeutic activities to return to functional activities of daily living. Electronically signed by: Ana Singh, PT, DPT, ATC Please sign and return to therapist. Thank you for your referral.
--- NOTE | 2024-08-15 08:14 | MHC.PT.DC ---
[facility] [place] Office [place] [facility] [place] [facility] [address] Randee Price [address] [phone] F: [phone] F: [phone] F: [phone] F: [phone] Physical Therapy Discharge Report Diagnosis: cervical radiculpathy Date of Surgery: n/a Date of Evaluation: 07/16/24 Date of Discharge: 08/15/24 Treatments to Date: 3 Cancellations to Date: 2 No Shows to Date: 0 Discharge Status: Improved Function Discharge Summary: Pt cancelled her last appointment and did not rescheduled. This was planned to be her last visit so she is d/c. Electronically signed by: Ana Singh, PT, DPT, ATC Please sign and return to therapist. Thank you for your referral.
== END 2024-08-15 08:14 | disposition home or self-care (01) ==
LOC: HO.PTCHIC 10:00
PROVIDERS: PCP Internal Medicine; Visit Provider Internal Medicine
DX: M54.12 Radiculopathy, cervical region (principal)
CPT/HCPCS: 97110; 97140; 97161

== ENCOUNTER 2024-12-15 13:23 | Outpatient (AMB) | payer BC, SELFPAY ==
--- NOTE | 2024-12-15 13:25 | MHC.PC.OV ---
Vital Signs 12/15/24 13:26 Height 5 ft 6 in Weight 192 lb BMI 31.0 BP 110/78 Blood Pressure Location Lt brachial Position Sitting Pulse 81 Pulse Source Pulse Oximeter Pulse Oximetry (%) 98 Oxygen Delivery Method Room Air Intake Visit Reasons: ABDIFATAH Dr Arthur Detail Manager Required: No Accompanied by: Self / Same As Patient Allergies miconazole (From Monistat 1 Combo Pack) Allergy (Severe, Verified 12/15/24 13:42) burning BuSpar Allergy (Intermediate, Verified 12/15/24 13:42) hives buspirone (From BUSPAR) Allergy (Intermediate, Verified 12/15/24 13:42) HIVES fentanyl (FENTANYL) Allergy (Intermediate, Verified 12/15/24 13:42) FENTANYL DURING SURGERY UNKNOWN REACTION sumatriptan (From Imitrex) Allergy (Intermediate, Verified 12/15/24 13:42) Anaphylaxis topiramate (From Topamax) Allergy (Intermediate, Verified 12/15/24 13:42) Numbness tramadol (TRAMADOL) Allergy (Intermediate, Verified 12/15/24 13:42) MIGRAINES, severe headaches (migraine); dry mouth trazodone Allergy (Intermediate, Verified 12/15/24 13:42) Migraine bupropion (From Wellbutrin) Allergy (Verified 12/15/24 13:42) Palpitations vilazodone Adverse Reaction (Severe, Verified 12/15/24 13:42) suicidal ideation Pollen, dust Allergy (Unknown, Uncoded 12/15/24 13:42) Unknown sutures-post op Allergy (Unknown, Uncoded 12/15/24 13:42) infection vicodin Allergy (Unknown, Uncoded 12/15/24 13:42) dizziness, light headedness, ineffective Medication List - Last Reconciled 12/15/24 by AARON Ramos acetaminophen 1,000 mg PO Q8H acetaminophen ER (Tylenol 8 Hour) 650 mg PO Q8H PRN baclofen 20 mg PO BEDTIME gabapentin 100 mg PO BEDTIME hydroxyzine HCl 10 mg PO TID PRN ibuprofen 600 mg PO Q6H PRN levonorgestrel (Mirena) intrauterine lorazepam 0.5 mg PO DAILY meclizine 25 mg PO QID PRN 30 days metronidazole 0.75% (MetroCream) 1 appl topical DAILY metronidazole 1% 1 appl topical DAILY mometasone 0.1% 1 appl topical DAILY omeprazole 40 mg PO DAILY ondansetron 4 mg PO Q8H Tobacco use date assessed: 12/15/24 Dental Screening Dental Screen Date: 12/15/24 Did you have a dental visit in the last 12 months?: Yes Did you have a dental problem in the last 6 months where you did not have access to dental care?: No Was dental information given to patient?: Patient has dentist HPI ABDIFATAH Dr Arthur HPI Details The patient is a 39-year-old female presenting with chronic pain management and evaluation of multiple ongoing health issues. Patient of Dr. Arthur, who retired, presenting for transition of care. The patient reports a long-standing history of depression and anxiety, which have been managed with psychiatric care. She experiences daily anxiety and panic attacks, exacerbated by recent life stressors, including the of a family member. The patient has been seeing a psychiatrist regularly, which she finds beneficial. The patient suffers from chronic migraines and has a history of chronic pain affecting multiple areas, including her neck, knees, and back. She has been diagnosed with osteoarthritis in her knees and femur, and experiences significant pain on her right side. She has previously received cortisone injections, which were effective on the left knee but not on the right. Reports PT to right shoulder recently with positive effect. Reports that she never see pain management. States that she is currently managing her pain with ibuprofen 600mg a day and tylenol 1000mg a day. The patient reports carpal tunnel syndrome, with symptoms of fingers getting stuck during activities like cleaning. She also experiences sciatica, which has recently worsened, causing bilateral leg pain. She has not had an MRI of her back in over 15 years. The patient has a history of Lyme disease diagnosed at age 25, which she believes may contribute to her ongoing joint pain. She has undergone an MRI of the brain, which showed no abnormalities. The patient reports rosacea and acne, which are not well controlled with current topical treatments. She has tried [id number] treatments and metronidazole gel without significant improvement. The patient experiences chronic constipation, which she attributes to her pinched nerves and back pain. She reports difficulty with bowel movements and incomplete evacuation, requiring the use of MiraLax occasionally. She does have a history of gastric sleeve FORMERLY [facility], [facility] Medical History Cholecystectomy planned Migraine headache Sciatic leg pain Acute arthritis Depression Anxiety Surgical History History of plastic surgery History of cholecystectomy [place] teeth extracted H/O LEEP History of sleeve gastrectomy History of right oophorectomy Family History Mother Diabetes Hypertension Chronic mental illness Father Medical history unknown Maternal Grandmother Diabetes Maternal Uncle Brain tumor Brother Asthma Son In good health Son In good health Maternal Grandfather Esophageal cancer Social History Household Members: Children Household Members Other:: sister Housing: House Patient Tobacco Use Status: Never used Tobacco Tobacco use type: Cigarette e-Cigarette/Vaping Use: Never Used Second Hand Smoke Exposure: No service: No Current occupational status: employed Current occupation: [employer] Current occupational exposures/hazards: No Sexual orientation: Straight/Heterosexual Gender identity: Female Cognitive needs: No Hearing needs: No Vision needs: Yes Female Reproductive History Menstrual Age of Menarche: 11 Questionnaire PHQ-9 Over the last 2 weeks, how often have you been bothered by any of the following problems? 1. Little interest or pleasure in doing things: not at all 2. Feeling down, depressed, or hopeless: several days 3. Trouble falling or staying asleep, or sleeping too much: several days 4. Feeling tired or having little energy: several days 5. Poor appetite or overeating: several days 6. Feeling bad about yourself - or that you are a failure or have let yourself or your family down: not at all 7. Trouble concentrating on things, such as reading the newspaper or watching television: more than half the days 8. Moving or speaking so slowly that other people could have noticed. Or the opposite - being so fidgety or restless that you have been moving around a lot more than usual: not at all 9. Thoughts that you would be better off or of hurting yourself in some way: not at all Total score: 6 Source: Developed by Drs. Chaim Page, Madeleine Mohr, Jose Sow and colleagues, with an educational lara from [employer]. Thrive Questionnaire Date Thrive assessed: 12/15/24 I am a: Patient What is your living situation today?: I have a steady place to live Within the past 12 months, did the food you bought not last and you didn't have the money to get more?: Sometimes True Within the past 12 months, did you worry whether your food would run out before you got money to buy more?: Often true Do you have trouble paying for medicines?: No Do you have trouble getting transportation to medical appointments?: No Do you have trouble paying your heating and electricity bill?: No Do you have trouble taking care of your child, family member or friend?: No Do you have trouble with day-to-day activities such as bathing, preparing meals, shopping, managing finances, etc.?: No Are you currently unemployed and looking for a job?: No Are you interested in more education?: No Please select the resources that you would like help with: None Currently or been in a relationship where the following occur: No concerns reported THRIVE Score: 2 AUDIT C Alcohol Use Questionnaire (AUDIT-C) 1. How often do you have a drink containing alcohol?: Monthly or less 2. How many drinks containing alcohol do you have on a typical day when you are drinking?: 1 or 2 3. How often do you have six or more drinks on one occasion?: Never Total Score: 1 ZENON-7 AMB Questionnaire ZENON-7 Date ZENON - 7 assessed: 12/15/24 Feeling nervous, anxious, or on edge: 2 = More than half the days Not being able to stop or control worryin = Several days Worrying too much about different things: 1 = Several days Trouble relaxin = Several days Being so restless that it is hard to sit still: 0 = Not at all Becoming easily annoyed or irritable: 1 = Several days Feeling afraid as if something awful might happen: 1 = Several days Total ZENON-7 score (0-4 normal; 5-9 mild; 10-14 moderate; 15-21 severe): 7 Source: Developed by Drs. Chaim Page, Madeleine Mohr, Jose Sow and colleagues, with an educational lara from [employer]. Review of Systems Const Reports body aches and Reports headache(s) (on and off) Eyes Denies loss of vision ENT Denies vertigo, Denies dizziness, Reports headache(s) (on and off), Reports neck pain and Denies sore throat Card Denies chest pain, Denies leg edema and Denies lightheadedness Resp Denies cough, Denies hemoptysis and Denies wheezing GI Denies abdominal pain, Denies melena, Denies constipation, Denies diarrhea and Denies vomiting Denies urinary frequency, Denies dysuria and Denies urinary urgency Musc Reports arthralgias (knees, shoulders), Denies joint swelling, Reports neck pain, Denies numbness, Reports radiating pain into limb (right side mostly) and Denies tingling Skin/Breast Reports acne Neuro Denies Abnormal speech present, Denies behavioral changes, Denies vertigo, Denies dizziness, Reports headache(s) (on and off), Denies loss of vision, Denies memory loss, Denies numbness and Denies tingling Psych Reports anxiety, Denies behavioral changes, Reports depression, Denies memory loss and Reports panic attacks Toney/Lymph Denies easy bleeding and Denies easy bruising Aller/Immun Denies wheezing Physical exam (Primary Care) Vital Signs: Last Vital Signs Pulse 81 12/15/24 13:26 BP 110/78 12/15/24 13:26 Pulse Ox 98 12/15/24 13:26 Oxygen Delivery Method Room Air 12/15/24 13:26 BMI result Body Mass Index 31.0 Tobacco/Smoking Status: Tobacco use Status Tobacco use date assessed 12/15/24 12/15/24 13:36 Patient Tobacco Use Status Never used Tobacco 12/15/24 13:36 Tobacco use type Cigarette 12/15/24 13:36 e-Cigarette/Vaping Use Never Used 12/15/24 13:36 PHQ-9: PHQ-9 Score PHQ-9: Total score 6 12/15/24 22:35 Thrive Assessment: Date of Thrive Assessment Date Thrive assessed 12/15/24 12/15/24 13:36 Currently or been in a relationship where the following occur: No concerns reported Const General: healthy appearing, no acute distress, alert and awake Nutritional Appearance: well nourished Orientation/consciousness: oriented to person, oriented to place and oriented to time HENMT Ears: TM's normal bilaterally General nose exam: Normal nasal mucous membranes and turbinates present Eyes Conjunctivae: conjunctivae normal Sclerae: sclerae normal Pupils: Equal, round and reactive pupils present Neck Neck: Yes no lymphadenopathy and Yes no JVD Thyroid: Thyroid normal Carotids: no bruits Resp Effort & Inspection: normal respiratory effort and not tachypneic Auscultation: no crackles, no rales, no rhonchi and no wheezes Cardio Rate: regular rate Rhythm: regular rhythm Heart sounds: no murmurs and normal S1 and S2 GI Palpation (GI): Soft to palpation, nontender, no hepatomegaly and no splenomegaly Auscultation: normal bowel sounds General: Yes no CVA tenderness Back/Spine/Pelvis Back: no CVA tenderness Cervical Spine: No Cervical spine tenderness Thoracic/Lumbar Spine: No thoracic spinal tenderness, No lumbar spinal tenderness and No straight leg raise positive Skin General skin exam: no rashes or lesions noted and dry skin Neuro General: oriented to person, oriented to place and oriented to time Cranial nerves: Yes Equal, round and reactive pupils present Speech: No Abnormal speech present Gait exam (Neuro): Normal gait present Motor exam (neuro): no tremor noted Extrem Right upper extremity: full ROM Left upper extremity: full ROM Right lower extremity: full ROM; no edema Left lower extremity: full ROM; no edema Psych Mental Status: mental status grossly normal Speech and movement: Normal speech and movement present Affect: normal affect Attitude: cooperative Thought process: Normal thought process present Coding Level of Care Code Est Pt Level 4 (31533) Diagnoses Migraine without status migrainosus, not intractable, unspecified migraine type G43.909 Migraine type: unspecified Status migrainosus presence: without status migrainosus Intractability: not intractable Depression, unspecified depression type F32.A Depression Type: unspecified Abnormal uterine bleeding (AUB) N93.9 Radiculitis of right cervical region M54.12 Chronic pain of both knees M25.561; M25.562; G89.29 Chronicity: chronic Right shoulder pain, unspecified chronicity M25.511 Chronicity: unspecified Chronic bilateral low back pain with right-sided sciatica G89.29; M54.41 Chronicity: chronic Back pain laterality: bilateral Sciatica presence: with sciatica Sciatica laterality: sciatica of right side Acne vulgaris L70.0 Acne type: acne vulgaris Time Spent (min) 42 Assessment & Plan Assessment & Plan (1) Migraine headache: Code(s): G43.909 - Migraine, unspecified, not intractable, without status migrainosus Category: Medical Qualifiers: Migraine type: unspecified Status migrainosus presence: without status migrainosus Intractability: not intractable Qualified Code(s): G43.909 - Migraine, unspecified, not intractable, without status migrainosus Plan: Lifestyle changes for acute onset or preventative migraine headache Consistent swelling times, at least 8 hours a night Regularly scheduled meals and between meal snacks Adequate fluid intake to prevent dehydration, especially with high intensity sports/activity Avoid triggers (bright light, loud noises, strong smells, etc.,0 Keep headache diary to try to pinpoint triggers (2) Depression: Code(s): F32.9 - Major depressive disorder, single episode, unspecified Category: Medical Qualifiers: Depression Type: unspecified Qualified Code(s): F32.A - Depression, unspecified Plan: Reports exacerbation close to periods and was recommended to by her psychiatrist to have Obgyn order medication to stop her period. She is already on Levonorgestrel IU, however, she is still getting her periods while on her IUD. Continue gabapentin 100 mg at bedtime, hydroxyzine HCI 10 mg TID prn, and lorazepam 0.5 mg daily. Follow up with psychiatry as scheduled (3) Abnormal uterine bleeding (AUB): Code(s): N93.9 - Abnormal uterine and vaginal bleeding, unspecified Category: Medical Plan: Continue levonorgestrel IUD Follow up with OBGYN as scheduled (4) Radiculitis of right cervical region: Code(s): M54.12 - Radiculopathy, cervical region Category: Medical Plan: Cervical showing narrowing of intervertebral disc spaces at C5-C6, C6-C7, and C7-T1 suggests suggest cysts underlying moderate degenerative disc disease. Continue gabapentin 100 mg at bedtime, baclofen 20 mg at bedtime and Tylenol 650 mg p.r.n. (5) Bilateral knee pain: Code(s): M25.561 - Pain in right knee; M25.562 - Pain in left knee Category: Medical Qualifiers: Chronicity: chronic Qualified Code(s): M25.561 - Pain in right knee; M25.562 - Pain in left knee; G89.29 - Other chronic pain Plan: History of cortisone injections with positive effects in the left knee only. Reports that she has been coping with conservative treatment of Tylenol, baclofen and gabapentin (6) Shoulder pain, right: Code(s): M25.511 - Pain in right shoulder Category: Medical Qualifiers: Chronicity: unspecified Qualified Code(s): M25.511 - Pain in right shoulder Plan: right shoulder xray showed mild spurring of the AC joint 05/28/24 Recent PT with positive effects (7) Lower back pain: Code(s): M54.50 - Low back pain, unspecified Category: Medical Qualifiers: Chronicity: chronic Back pain laterality: bilateral Sciatica presence: with sciatica Sciatica laterality: sciatica of right side Qualified Code(s): G89.29 - Other chronic pain; M54.41 - Lumbago with sciatica, right side Plan: Reports a history of bulging discs-NO MRI in over 15 years reports radiculopathy on the right side mostly, infrequently she might get pain down her left side Will refer the patient to pain management to further evaluate (8) Acne: Code(s): L70.9 - Acne, unspecified Category: Medical Qualifiers: Acne type: acne vulgaris Qualified Code(s): L70.0 - Acne vulgaris Plan: Reports that her current treatment metronidaole 1% has been ineffective will try the patient on clindamycin 1% topical Orders: Orders Complete Blood Count Auto Diff Today F32.9 - Major depressive disorder, single episode, unspecified, G43.909 - Migraine, unspecified, not intractable, without status migrainosus, N93.9 - Abnormal uterine and vaginal bleeding, unspecified, R42 - Dizziness and giddiness, Z00.00 - Encounter for general adult medical examination without abnormal findings, Z01.419 - Encounter for gynecological examination (general) (routine) without abnormal findings Lipid Panel Today F32.9 - Major depressive disorder, single episode, unspecified, G43.909 - Migraine, unspecified, not intractable, without status migrainosus, N93.9 - Abnormal uterine and vaginal bleeding, unspecified, R42 - Dizziness and giddiness, Z00.00 - Encounter for general adult medical examination without abnormal findings, Z01.419 - Encounter for gynecological examination (general) (routine) without abnormal findings TSH reflex Free T4 Today F32.9 - Major depressive disorder, single episode, unspecified, G43.909 - Migraine, unspecified, not intractable, without status migrainosus, N93.9 - Abnormal uterine and vaginal bleeding, unspecified, R42 - Dizziness and giddiness, Z00.00 - Encounter for general adult medical examination without abnormal findings, Z01.419 - Encounter for gynecological examination (general) (routine) without abnormal findings Vitamin D 25-OH Total Today F32.9 - Major depressive disorder, single episode, unspecified, G43.909 - Migraine, unspecified, not intractable, without status migrainosus, N93.9 - Abnormal uterine and vaginal bleeding, unspecified, R42 - Dizziness and giddiness, Z00.00 - Encounter for general adult medical examination without abnormal findings, Z01.419 - Encounter for gynecological examination (general) (routine) without abnormal findings Comprehensive [place]. Panel Fast Today F32.9 - Major depressive disorder, single episode, unspecified, G43.909 - Migraine, unspecified, not intractable, without status migrainosus, N93.9 - Abnormal uterine and vaginal bleeding, unspecified, R42 - Dizziness and giddiness, Z00.00 - Encounter for general adult medical examination without abnormal findings, Z01.419 - Encounter for gynecological examination (general) (routine) without abnormal findings UA CC w/rflx Micro + Cult Today F32.9 - Major depressive disorder, single episode, unspecified, G43.909 - Migraine, unspecified, not intractable, without status migrainosus, N93.9 - Abnormal uterine and vaginal bleeding, unspecified, R42 - Dizziness and giddiness, Z00.00 - Encounter for general adult medical examination without abnormal findings, Z01.419 - Encounter for gynecological examination (general) (routine) without abnormal findings Referrals Pain Management Referral G89.29 - Other chronic pain, M54.12 - Radiculopathy, cervical region, M54.41 - Lumbago with sciatica, right side Medications: New mometasone 0.1% 1 appl topical DAILY 45 grams 3RF clindamycin phosphate 1% 1 appl topical DAILY 60 grams 2RF
[2024-12-15 13:26] VITALS: BP 110/78; PULSE 81; O2SAT 98; BMI 31.0
--- OUTSIDE RECORDS SUMMARY | 2024-12-15 14:46 | XMS_ITS | Clinical Summary ---
Author Organization [address] [place] [address] Address [address] [place] [address] Phone Care Team Providers Care Snack Steward Name Role Phone Lonnie Arthur MD Primary Care Provider [phone] Allergies Active Allergy Reactions Criticality Noted Date Comments Buspirone Hives 02/18/2020 Fentanyl 02/18/2020 Sumatriptan 07/03/2024 Other Reaction(s): BP drops, throat tightens Tramadol Headache 02/18/2020 Migraine headaches Medications wheat dextrin 3 gram/3.8 gram powder Take 4 g by mouth. 0 Active acetaminophen (TYLENOL) 500 mg tablet Take 2 tablets (1,000 mg total) by mouth. 0 Active albuterol HFA (PROAIR HFA ; PROVENTIL HFA ; VENTOLIN HFA) 90 mcg/actuation inhaler Inhale 2 puffs by mouth every 4 (four) hours if needed. Active buPROPion XL (WELLBUTRIN XL) 150 mg 24 hr tablet Take 1 tablet (150 mg total) by mouth. 3 Active cholecalciferol (VITAMIN D-3) 1,250 mcg (50,000 unit) capsule TAKE 1 CAPSULE BY MOUTH 1 TIME A WEEK 1 Active cyanocobalamin, vitamin B-12, 1,000 mcg tablet, sublingual Place 1,000 mcg under the tongue. 1 Active fluticasone propionate (FLONASE) 50 mcg/actuation nasal spray Administer 1 spray into affected nostril(s). Active hydrOXYzine HCL (ATARAX) 25 mg tablet Take 1 tablet (25 mg total) by mouth. Active nystatin, bulk, 10 billion unit powder Apply to area of rash bid. 1 Active omeprazole (PriLOSEC) [address] capsule Take 1 capsule (40 mg total) by mouth. 3 Active polyethylene glycol (MIRALAX) 17 gram packet Take 17 g by mouth. 0 Active simethicone (MYLICON) 80 mg chewable tablet Chew 1 tablet (80 mg total). 0 Active sucralfate (CARAFATE) 1 gram tablet Take 1 tablet (1 g total) by mouth. 3 Active tiZANidine (ZANAFLEX) 2 mg capsule Take 1 capsule (2 mg total) by mouth. Active LORazepam (ATIVAN) 0.5 mg tablet Take 1 tablet (0.5 mg total) by mouth 1 (one) time each day if needed. for anxiety Max Daily Amount: 0.5 mg 4 Active phentermine 15 mg capsuleIndicatio ns:Class 1 obesity due to excess calories with body mass index (BMI) of 30.0 to 30.9 in adult, unspecified whether serious comorbidity present Take 1 capsule (15 mg total) by mouth 1 (one) time each day before breakfast. Max Daily Amount: 15 mg 30 each 5 Active Active Problems Problem Noted Date Diagnosed Date Anxiety 02/18/2020 Asthma 02/18/2020 Depression 02/18/2020 GERD (gastroesophageal reflux disease) 0 Insomnia 02/18/2020 Lumbar disc disease 02/18/2020 Migraines 02/18/2020 Surgical History Surgery Date Site/Laterality Comments WISDOM TOOTH EXTRACTION PROCEDURE: HISTORICAL WISDOM TEETH EXTRACTION CHOLECYSTECTOMY PROCEDURE: HISTORICAL CHOLECYSTECTOMY CERVICAL BIOPSY W/ LOOP ELECTRODE EXCISION PROCEDURE: UT CONIZATION CERVIX W/WO D&C RPR ELTRD EXC OOPHORECTOMY Right PROCEDURE: HISTORICAL OOPHORECTOMY Medical History Medical History Date Comments Anxiety 02/18/2020 DX:Anxiety Depression 02/18/2020 DX:Depression Insomnia 02/18/2020 DX:Insomnia Migraines 02/18/2020 DX:Migraines GERD (gastroesophageal reflux disease) 02/18/2020 DX:GERD (gastroesophageal reflux disease) Asthma 02/18/2020 DX:Asthma Morbid obesity with BMI of 4 0.0-44.9, adult (CMS/[facility] V24, [facility] V28) 07/02/2019 DX:Morbid obesity wit h BMI of 40.0-44.9, adult (HCC) Lumbar disc disease 02/18/2020 DX:Lumbar di sc disease Family History Medical History Relation Name Comments Asthma Brother Other: Esophogeal Cancer Maternal Grandfather Diabetes Maternal Grandmother Diabetes Mother Hypertension, M ental Illness Other: brain tumor Mother's side uncle Relation Name Status Comments Brother Maternal Grandfather Maternal Grandmother Mother Mother's side Social History Tobacco Use Types Packs/Day Years Used Date Smoking Tobacco: Never Smokeless Tobacco: Never Alcohol Use Standard Drinks/Week Comments Yes 0 (1 standard drink = 0.6 oz pur e alcohol) Comments Unknown Sex and Gender Information Value Date Recorded Sex Assigned at Not on file Legal Sex Female 3:58 AM EST Gender Identity Not on file Sexual Orientation Not on file Obstetrics History Last Filed Vital Signs Vital Sign Reading Time Taken Comments Blood Pressure 123/73 07/03/2024 11:00 AM EST Pulse 73 07/03/2024 11:00 AM EST Temperature 36.6 C (97.8 F) 07/03/2024 11:00 AM EST Respiratory Rate - - Oxygen Saturation - - Inhaled Oxygen Concentration - - Weight 86.2 kg (190 lb) 07/03/2024 11:00 AM EST Height 167.6 cm (5' 6 ) 07/03/2024 11:00 AM EST Body Mass Index 30.67 07/03/2024 11:00 AM EST Plan of Treatment Health Maintenance Due Date Last Done Comments Breast Cancer Screening 1983 Pneumococcal Vaccine: Pediatrics (0 to 5 Years) and At-Risk Patients (6 to 64 Years) (1 of 2 - PCV) 2002 Cervical Cancer Screening: Pap Smear 2004 Cholesterol Screening (Lipid Panel) 06/03/2022 Depression Screening 06/03/2022 HIV Screening 06/03/2022 Hepatitis C Screening 06/03/2022 Social Influencers of Health Screening 06/03/2022 Hepatitis B Vaccines (2 of 3 - 19+ 3-dose series) 11/22/2023 10/25/2023 COVID-19 Vaccine (3 - 2023-25 season) 2024 05/03/2021, 04/04/2021 DTaP,Tdap,and Td Vaccines (3 - Td or Tdap) 11/15/2032 11/15/2022, 08/08/2013 Influenza Vaccine Completed 04/24/2024, , 04/16/2019, Additional history exists HIB Vaccines Aged Out No longer eligi ble based on patient's age to complete this topic HPV Vaccines Aged Out No longer eligi ble based on patient's age to complete this topic Hepatitis A Vaccines Aged Out No long er eligible based on patient's age to complete this topic IPV Vaccines Aged Out No longer eligi ble based on patient's age to complete this topic MMR Vaccines Aged Out No longer eligi ble based on patient's age to complete this topic Meningococcal ACWY Vaccine Aged Out N o longer eligible based on patient's age to complete this topic Meningococcal B Vaccine Aged Out No l onger eligible based on patient's age to complete this topic RSV Immunization Patients Under 20 months Aged Out No longer eligible based on patient's age to complete this topic Varicella Vaccines Aged Out No longer eligible based on patient's age to complete this topic Insurance [facility] Care Teams Snack Steward Relationship Specialty Start Date End Date Lonnie Arthur MD [address] [place] [address] PCP - General Internal Medicine 03/27/19
== END 2024-12-15 14:13 | disposition home or self-care (01) ==
LOC: HO.HMCH 13:24
DX: G43.909 Migraine, unspecified, not intractable, without status migrainosus (principal); F32.A Depression, unspecified; N93.9 Abnormal uterine and vaginal bleeding, unspecified; M54.12 Radiculopathy, cervical region; M25.561 Pain in right knee; M25.562 Pain in left knee; G89.29 Other chronic pain; M25.511 Pain in right shoulder; M54.41 Lumbago with sciatica, right side; L70.0 Acne vulgaris

== ENCOUNTER → 2024-12-15 13:23 | Outpatient (BNVA) | payer BC, SELFPAY | PROVIDERS: PCP Internal Medicine | DX: Z13.89 Encounter for screening for other disorder (principal) ==

== ENCOUNTER 2024-12-17 09:44 | Outpatient (REF) | payer BC, SELFPAY ==
[2024-12-17 09:58] LABS: MANUAL DIFF FLAG NO
[2024-12-17 10:39] LABS: Basophils Absolute Auto 0.1 X10*3/uL (0.0-0.2); Basophils Percent Auto 0.9 % (0-2); Eosinophils Absolute Auto 0.2 X10*3/uL (0.0-0.4); Eosinophils Percent Auto 2.1 % (0-4); Hematocrit 39.9 % (37.0-47.0); Hemoglobin 13.7 g/dl (12.0-16.0); Imm Gran Abs Auto 0.05 X10*3/uL (0.00-0.03); Imm Gran Pct Auto 0.6 % (0.0-0.4); Lymphocytes Absolute Auto 1.9 X10*3/uL (1.2-4.9); Lymphocytes Percent Auto 23.9 % (20-40); Mean Corpuscular HGB Conc 34.3 g/dl (31.0-35.0); Mean Corpuscular Hemoglobin 29.9 pg (27.0-33.0); Mean Corpuscular Volume 87.1 fL (80.0-98.0); Mean Platelet Volume 8.6 fL (9.4-12.3); Monocytes Absolute Auto 0.5 X10*3/uL (0.1-1.2); Monocytes Percent Auto 6.7 % (2-11); Neutrophils Absolute Auto 5.3 x10*3/uL (2.0-8.3); Neutrophils Percent Auto 65.8 % (45-73); Platelet Count 300 X10*3/uL (160-400); Red Blood Count 4.58 X10*6/uL (4.20-5.50); Red Cell Distribution Width 11.5 % (11.0-16.0); White Blood Count 8.1 X10*3/uL (4.8-10.8)
--- OUTSIDE RECORDS SUMMARY | 2024-12-17 11:03 | XMS_ITS | Clinical Summary ---
Author Organization [address] [place] [address] Address [address] [place] [address] Phone Care Team Providers Care Shaker Operator Name Role Phone Lonnie Arthur MD Primary Care Provider [phone] Allergies Active Allergy Reactions Criticality Noted Date [...] CERVICAL BIOPSY W/ LOOP ELECTRODE EXCISION PROCEDURE: OR CONIZATION CERVIX W/WO D&C RPR ELTRD EXC OOPHORECTOMY Right PROCEDURE: HISTORICAL OOPHORECTOMY Medical History Medical History Date Comments Anxiety 02/18/2020 DX:Anxiety Depression 02/18/2020 DX:Depression Insomnia 02/18/2020 DX:Insomnia Migraines 02/18/2020 DX:Migraines GERD (gastroesophageal reflux disease) 02/18/2020 DX:GERD (gastroesophageal reflux disease) Asthma 02/18/2020 DX:Asthma Morbid obesity with BMI of 4 0.0-44.9, adult (CMS/[facility] V24, [facility] V28) 07/02/2019 DX:Morbid obesity wit h BMI [...] patient's age to complete this topic Insurance [facility] Care Teams Shaker Operator Relationship Specialty Start Date End Date Lonnie Arthur MD [address] [place] [address] PCP - General Internal Medicine 03/27/19
[2024-12-17 11:05] LABS: Appearance Urine Clear; Color Urine Yellow; Glucose Urine UA Negative (Negative); Leukocyte Esterase Urine Negative (Negative); Nitrite Urine Negative (Negative); Specific Gravity - Urine <= 1.005 (1.005-1.025); UMIC TRIGGER UACC YES; Urine Blood Trace (Negative); Urine Ketones Negative (Negative); Urine Protein Negative (Neg-Trace)
[2024-12-17 11:09] LABS: Bacteria Urine None Seen (None Seen); Hyaline Casts Urine 0-2 /LPF (0-2); RBC Urine 0-2 /HPF (0-2); Squamous Epithelial Cell Urine 0-2 /HPF (0-2); WBC Urine 0-5 /HPF (0-5)
[2024-12-17 11:25] LABS: Alanine Aminotransferase 25 U/L (0-31); Albumin Level 4.5 g/dL (3.5-5.0); Alkaline Phosphatase 64 U/L (39-117); Anion Gap 11 (12-20); Aspartate Amino Transferase 22 U/L (5-31); Bilirubin Total 0.7 mg/dL (0.0-1.0); Blood Urea Nitrogen 12 mg/dL (9-16); Calcium 9.5 mg/dL (8.4-10.2); Carbon Dioxide 26 mmol/L (22-29); Chloride 106 mmol/L (96-108); Cholesterol 180 mg/dL (<200); Estimated Glomerular Filt Rate > 60; Glucose Fasting 92 mg/dL (60-99); HDL Cholesterol 43 mg/dL (>40); LDL Cholesterol Calculated 115 mg/dL (<100); Potassium 4.1 mmol/L (3.3-5.1); Sodium 139 mmol/L (135-145); Total Protein 7.4 g/dL (6.5-8.0); Triglycerides 113 mg/dL (<150)
[2024-12-17 11:26] LABS: TSH reflex Free T4 1.62 uIU/mL (0.32-4.0); Vitamin D 25-OH Total 28.6 ng/mL (>30)
== END 2024-12-17 09:45 | disposition home or self-care (01) ==
LOC: HO.LAB 09:44
DX: Z00.00 Encounter for general adult medical examination without abnormal findings; F32.9 Major depressive disorder, single episode, unspecified; G43.909 Migraine, unspecified, not intractable, without status migrainosus; N93.9 Abnormal uterine and vaginal bleeding, unspecified; R42 Dizziness and giddiness
CPT/HCPCS: 36415; 80053; 80061; 81001; 81003; 82306; 84443; 85025

== ENCOUNTER 2025-01-30 15:18 | Outpatient (AMB) | payer BC, SELFPAY ==
--- NOTE | 2025-01-30 15:19 | MHC.OFFVIS ---
Vital Signs 01/30/25 15:24 Height 5 ft 6 in Weight 189 lb 6 oz BMI 30.6 BP 117/68 Blood Pressure Location Lt brachial Position Sitting Pulse 68 Pulse Source Pulse Oximeter Pulse Oximetry (%) 100 Oxygen Delivery Method Room Air Intake Visit Reasons: Other Chronic Pain Intake Note: Pain today 01/01 Shovel Mechanic Required: No Accompanied by: Self / Same As Patient Allergies miconazole (From Monistat 1 Combo Pack) Allergy (Severe, Verified 01/30/25 15:23) burning BuSpar Allergy (Intermediate, Verified 01/30/25 15:23) hives buspirone (From BUSPAR) Allergy (Intermediate, Verified 01/30/25 15:23) HIVES fentanyl (FENTANYL) Allergy (Intermediate, Verified 01/30/25 15:23) FENTANYL DURING SURGERY UNKNOWN REACTION sumatriptan (From Imitrex) Allergy (Intermediate, Verified 01/30/25 15:23) Anaphylaxis topiramate (From Topamax) Allergy (Intermediate, Verified 01/30/25 15:23) Numbness tramadol (TRAMADOL) Allergy (Intermediate, Verified 01/30/25 15:23) MIGRAINES, severe headaches (migraine); dry mouth trazodone Allergy (Intermediate, Verified 01/30/25 15:23) Migraine bupropion (From Wellbutrin) Allergy (Verified 01/30/25 15:23) Palpitations vilazodone Adverse Reaction (Severe, Verified 01/30/25 15:23) suicidal ideation Pollen, dust Allergy (Unknown, Uncoded 12/15/24 13:42) Unknown sutures-post op Allergy (Unknown, Uncoded 12/15/24 13:42) infection vicodin Allergy (Unknown, Uncoded 12/15/24 13:42) dizziness, light headedness, ineffective HPI Comments Details: The patient is a 39-year-old female presenting with chronic neck pain. The neck pain has been a longstanding issues for her, and more recently within past few months, has been persistent, severe, and ranges from 5 to 8 out of 10, improving to 3 out of 10 midday. The pain worsens with side rotation and flexion, radiating to the right arm with weakness and tingling. She also experiences lower back pain, right knee pain, and right shoulder pain. Her history includes arthritis and sciatica, with symptoms starting at age 14. The lower back pain worsened after a chiropractic adjustment a year ago, with ongoing sciatica in the right leg. She has tried physical therapy, chiropractic therapy, massage, acupuncture, and a TENS unit. Pain management includes Tylenol, baclofen, and Motrin. She denies previous neck or back injections or surgeries. Recent imaging shows degenerative disc changes at C5-C6, C6-C7, and C7-T1, with a normal right shoulder x-ray. 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 She also manages anxiety, depression, and panic attacks with lorazepam and hydroxyzine as needed. Patient is currently engaged with Psychiatrist for her mental health conditions. - Onset: Chronic neck pain, persistent since age 14 - Quality: Constant, pulsing, throbbing, stabbing, pinching, tugging, tiring, sore, hurting, aching, radiating - Location: Neck, radiating to right arm - Radiation: To right arm with weakness and tingling - Exacerbating factors: Side rotation, flexion, computer desk work - Relieving factors: Midday improvement, Tylenol, baclofen, Motrin, rest, heat/ice therapy - Affect: Anxiety, depression, and panic attacks managed with lorazepam and hydroxyzine - Analgesia: Pain managed with Tylenol, baclofen, Motrin; pain levels range from 5 to 8 out of 10, improving to 3 out of 10 midday - Adverse Effects: None reported - Activities of Daily Living: Pain affects work at computer desk, continues home exercise and stretching - Aberrant Drug Related Behaviors: None reported [facility] Medical History Cholecystectomy planned Migraine headache Sciatic leg pain Acute arthritis Depression Anxiety Surgical History History of plastic surgery History of cholecystectomy [place] teeth extracted H/O LEEP History of sleeve gastrectomy History of right oophorectomy Family History Mother Diabetes Hypertension Chronic mental illness Father Medical history unknown Maternal Grandmother Diabetes Maternal Uncle Brain tumor Brother Asthma Son In good health Son In good health Maternal Grandfather Esophageal cancer Social History Household Members: Children Household Members Other:: sister Housing: House Patient Tobacco Use Status: Never used Tobacco Tobacco use type: Cigarette e-Cigarette/Vaping Use: Never Used Second Hand Smoke Exposure: No service: No Current occupational status: employed Current occupation: [employer] Current occupational exposures/hazards: No Sexual orientation: Straight/Heterosexual Gender identity: Female Cognitive needs: No Hearing needs: No Vision needs: Yes Female Reproductive History Menstrual Age of Menarche: 11 Review of Systems Const Details: - Musculoskeletal: Reports chronic neck pain, lower back pain, right knee pain, right shoulder pain - Neurological: Reports radiating pain to right arm with weakness and tingling - Psychiatric: Reports anxiety, depression, panic attacks All systems reviewed & are unremarkable except as noted in HPI and below Physical Exam Vital Signs: Last Vital Signs Pulse 68 01/30/25 15:24 BP 117/68 01/30/25 15:24 Pulse Ox 100 01/30/25 15:24 Oxygen Delivery Method Room Air 01/30/25 15:24 BMI result Body Mass Index 30.6 General: Appears afebrile. Alert and oriented. Mood and affect appropriate. Follows and participates in conversation appropriately. Respiratory effort is unlabored. No cough. Able to transition from sit to stand unassisted. Ambulates with bilaterally normal heel strike and toe off. Neck Other: Patient with decreased cervical ROM in all planes/especially with lateral rotation. Reports increased pain with cervical flexion. Spurling compression test equivocal. Pain is unchanged by Spurling maneuver with retraction. Elvey's tension test positive on the right, with radiation of pain from neck to elbow and into hand. Lhermitte's test was negative. DTR intact, +2 and symmetrical. Patient demonstrated 5/5 left and 4/5 right motor strength of bilateral upper extremities. 2 + radial pulses. Neck: Yes normal visual inspection, Yes no lymphadenopathy, Yes supple, No anterior neck swelling, Yes no JVD, No prominent supraclavicular fat pad and Yes prominent dorsocervical fat pad General: Yes no CVA tenderness Back/Spine/Pelvis Back: no CVA tenderness Cervical Spine: cervical muscular tenderness, pain with cervical ROM, No Cervical spine scars present, cervical spasm, No Cervical spine tenderness and No step off deformity Thoracic/Lumbar Spine: thoracic and lumbar spine normal to inspection, No Thoracic/lumbar spine scar(s), Lasegue's sign negative, straight leg raise negative bilaterally, pain with thoraco-lumbar ROM, paraspinal muscle tenderness on the right in the mid lumbar and in the lower lumbar, No thoracic spinal tenderness and lumbar spinal tenderness at L4 and at L5 Sacroiliac joints: on the right tender to palpation and on the left nontender Extrem General: Yes capillary refill normal, Yes no clubbing, cyanosis or edema and Yes no calf tenderness Right lower extremity: knee Details: normal to inspection, tenderness Location: of the patella and of the medial joint line, normal ROM and crepitus; no swelling, no ecchymosis, no deformity and no unusual warmth Results Reviewed Results Reviewed: XR CERVICAL SPINE 06/03/24 CLINICAL INFORMATION: Cervicalgia M54.2. Patient states pain in neck since lifting something heavy about 2weeks ago. COMPARISON: XR Cervical spine 10/02/2012 (report only). TECHNIQUE: 4 views of the cervical spine were obtained. FINDINGS: 7 cervical vertebrae identified maintaining normal height and alignments.. Narrowing of intervertebral disc spaces at , C5-C6, C6-C7 and C7-T1 suggests underlying moderate degenerative disc disease. No prevertebral soft tissue swelling. Surrounding soft tissue and included lung apices are clear. Paravertebral soft tissue unremarkable. IMPRESSION: 1. No fracture. 2. Bone alignments are satisfactory. 3. Narrowing of intervertebral disc spaces suggest underlying degenerative disc disease. XR SHOULDER, RIGHT 05/28/24 CLINICAL INFORMATION: pain COMPARISON: None available. TECHNIQUE: AP external rotation, Grashey, scapular Y, and axillary views of the right shoulder. FINDINGS: Mild spurring at the AC joint. No fracture, dislocation, or destructive process. IMPRESSION: No acute findings. Assessment & Plan Assessment & Plan (1) Neck pain: Code(s): M54.2 - Cervicalgia Category: Medical (2) Cervical spondylosis: Code(s): M47.812 - Spondylosis without myelopathy or radiculopathy, cervical region Category: Medical (3) Cervical radiculopathy: Code(s): M54.12 - Radiculopathy, cervical region Category: Medical (4) Degenerative disc disease, cervical: Code(s): M50.30 - Other cervical disc degeneration, unspecified cervical region Category: Medical (5) Neck pain: Code(s): M54.2 - Cervicalgia Category: Medical (6) Cervical spondylosis: Code(s): M47.812 - Spondylosis without myelopathy or radiculopathy, cervical region Category: Medical (7) Cervical radiculopathy: Code(s): M54.12 - Radiculopathy, cervical region Category: Medical (8) Cervicogenic headache: Code(s): G44.86 - Cervicogenic headache Category: Medical (9) Lower back pain: Code(s): M54.50 - Low back pain, unspecified Category: Medical Qualifiers: Back pain laterality: bilateral Chronicity: chronic Sciatica laterality: sciatica of right side Sciatica presence: with sciatica Qualified Code(s): G89.29 - Other chronic pain; M54.41 - Lumbago with sciatica, right side (10) Sacroiliac joint pain: Code(s): M53.3 - Sacrococcygeal disorders, not elsewhere classified Category: Medical Plan We will conduct a cervical MRI to assess for nerve compression, neural integrity, and disc herniations. Interventional treatments such as diagnostic vs therapeutic injections, cervical medial branch blocks, peripheral nerve stimulator, or radiofrequency ablation were discussed. Informational pamphlets were provided to patient. The patient will maintain her current medication regimen and apply heat for neck and back pain, and ice and lidocaine patches for knee and back pain. She will try a cervical support pillow to enhance sleep quality. Follow-up will occur after the MRI, and x-rays of the lower back and sacroiliac joint will be obtained. Patient was informed and verbally consented to the use of an ambient scribe for clinic note documentation during this visit. Orders: Orders MR cervical spine wo con 01/30/25 G44.86 - Cervicogenic headache, M47.812 - Spondylosis without myelopathy or radiculopathy, cervical region, M50.30 - Other cervical disc degeneration, unspecified cervical region, M54.12 - Radiculopathy, cervical region XR lumbar spine 4V min 01/30/25 G89.29 - Other chronic pain, M53.3 - Sacrococcygeal disorders, not elsewhere classified, M54.41 - Lumbago with sciatica, right side XR sacroiliac joint min 3V 08/08/25 G89.29 - Other chronic pain, M53.3 - Sacrococcygeal disorders, not elsewhere classified, M54.41 - Lumbago with sciatica, right side Medications: New lidocaine 5% 1 patch topical DAILY PRN 30 ea 0RF pain 30 days G89.29 - Other chronic pain, M53.3 - Sacrococcygeal disorders, not elsewhere classified, M54.41 - Lumbago with sciatica, right side Refilled acetaminophen ER (Tylenol 8 Hour) 650 mg PO Q8H PRN 30 tabs 0RF pain Coding Level of Care Code New Pt Level 4 (40845) Diagnoses Neck pain M54.2 Cervical spondylosis M47.812 Cervical radiculopathy M54.12 Degenerative disc disease, cervical M50.30 Cervicogenic headache G44.86 Chronic bilateral low back pain with right-sided sciatica G89.29; M54.41 Back pain laterality: bilateral Chronicity: chronic Sciatica laterality: sciatica of right side Sciatica presence: with sciatica Sacroiliac joint pain M53.3
--- OUTSIDE RECORDS SUMMARY | 2025-01-30 15:20 | XMS_ITS | Clinical Summary ---
Author Organization [address] [place] [address] Address [address] [place] [address] Phone Care Team Providers Care Cork Compounder Name Role Phone Lonnie Arthur MD Primary Care Provider [phone] Allergies Active Allergy Reactions Criticality Noted Date [...] obesity with BMI of 4 0.0-44.9, adult (CMS/[facility] V24, [facility] V28) 07/02/2019 DX:Morbid obesity wit h BMI [...] 5 Years) and At-Risk Patients (6 to 49 Years) (1 of 2 - PCV) 2002 Cervical Cancer Screening: Pap Smear 2004 Cholesterol Screening (Lipid Panel) 06/03/2022 HIV Screening 06/03/2022 Hepatitis C Screening 06/03/2022 Social Influencers of Health Screening 06/03/2022 Hepatitis B Vaccines (2 of 3 - 19+ 3-dose series) 11/22/2023 10/25/2023 COVID-19 Vaccine ( - 2023- season) 2024 05/03/2021, 04/04/2021 Depression Screening 06/25/2024 Influenza Vaccine (#1) 2025 , 05/07/2020, 04/16/2019, Additional history exists DTaP,Tdap,and Td Vaccines (3 - Td or Tdap) 11/15/2032 11/15/2022, 08/08/2013 HIB Vaccines Aged Out No longer eligi [...] patient's age to complete this topic Insurance [facility] Care Teams Cork Compounder Relationship Specialty Start Date End Date Lonnie Arthur MD [address] [place] [address] PCP - General Internal Medicine 03/27/19
[2025-01-30 15:24] VITALS: BP 117/68; PULSE 68; O2SAT 100; BMI 30.6
== END 2025-01-30 16:02 | disposition home or self-care (01) ==
LOC: HO.PMC 15:18
PROVIDERS: Visit Provider Nurse Practitioner Family
DX: M47.812 Spondylosis without myelopathy or radiculopathy, cervical region (principal); M54.12 Radiculopathy, cervical region; M50.30 Other cervical disc degeneration, unspecified cervical region; G44.86 Cervicogenic headache; G89.29 Other chronic pain; M54.41 Lumbago with sciatica, right side; M53.3 Sacrococcygeal disorders, not elsewhere classified
CPT/HCPCS: 99204

== ENCOUNTER 2025-02-09 13:28 | Outpatient (AMB) | payer BC, SELFPAY ==
[2025-02-09 13:29] VITALS: BP 130/90; PULSE 78; RESP 18; TEMP 36.2; O2SAT 97; BMI 30.4
--- NOTE | 2025-02-09 13:29 | A.OFFPC_ITS ---
Vital Signs 02/09/25 13:29 Height 5 ft 6 in Weight 188 lb 2 oz BMI 30.4 BP 130/90 H Blood Pressure Location Lt brachial Position Sitting Respiration 18 Pulse 78 Pulse Source Pulse Oximeter Temp 97.1 F Temp Source Temporal Artery Scan Pulse Oximetry (%) 97 Oxygen Delivery Method Room Air Intake Visit Reasons: Annual Exam Slate Mixer Required: No Accompanied by: Self / Same As Patient Allergies miconazole (From Monistat 1 Combo Pack) Allergy (Severe, Verified 02/09/25 14:06) burning BuSpar Allergy (Intermediate, Verified 02/09/25 14:06) hives buspirone (From BUSPAR) Allergy (Intermediate, Verified 02/09/25 14:06) HIVES fentanyl (FENTANYL) Allergy (Intermediate, Verified 02/09/25 14:06) FENTANYL DURING SURGERY UNKNOWN REACTION sumatriptan (From Imitrex) Allergy (Intermediate, Verified 02/09/25 14:06) Anaphylaxis topiramate (From Topamax) Allergy (Intermediate, Verified 02/09/25 14:06) Numbness tramadol (TRAMADOL) Allergy (Intermediate, Verified 02/09/25 14:06) MIGRAINES, severe headaches (migraine); dry mouth trazodone Allergy (Intermediate, Verified 02/09/25 14:06) Migraine bupropion (From Wellbutrin) Allergy (Verified 02/09/25 14:06) Palpitations vilazodone Adverse Reaction (Severe, Verified 02/09/25 14:06) suicidal ideation Pollen, dust Allergy (Unknown, Uncoded 02/09/25 14:06) Unknown sutures-post op Allergy (Unknown, Uncoded 02/09/25 14:06) infection vicodin Allergy (Unknown, Uncoded 02/09/25 14:06) dizziness, light headedness, ineffective Medication List - Last Reconciled 02/09/25 by AARON Ramos acetaminophen 1,000 mg PO Q8H acetaminophen ER (Tylenol 8 Hour) 650 mg PO Q8H PRN baclofen 20 mg PO BEDTIME clindamycin phosphate 1% 1 appl topical DAILY gabapentin 100 mg PO BEDTIME hydroxyzine HCl 10 mg PO TID PRN ibuprofen 600 mg PO Q6H PRN levonorgestrel (Mirena) intrauterine lidocaine 5% 1 patch topical DAILY PRN 30 days lorazepam 0.5 mg PO DAILY meclizine 25 mg PO QID PRN 30 days metronidazole 0.75% (MetroCream) 1 appl topical DAILY metronidazole 1% 1 appl topical DAILY mometasone 0.1% 1 appl topical DAILY omeprazole 40 mg PO DAILY ondansetron 4 mg PO Q8H sucralfate (Carafate) 1 g PO QIDACHS Tobacco use date assessed: 02/09/25 Dental Screening Dental Screen Date: 02/09/25 Did you have a dental visit in the last 12 months?: Yes Did you have a dental problem in the last 6 months where you did not have access to dental care?: No Was dental information given to patient?: Patient has dentist HPI Annual Exam HPI Details Dentist: up to date Eye: up to date Snellen: Right: Left: Corrected vision:yes-classes STI screening: Colonoscopy: n/a Pap Smer: up to date, with Dr. Ballesteros Mammogram: Due in April PHQ-9: Flu: up to date COVID: x2 Tdap: 2022 Diet:regular Exercise: Reports that her knee pain and back pain psychiatry PFSH Medical History Cholecystectomy planned Migraine headache Sciatic leg pain Acute arthritis Depression Anxiety Surgical History History of plastic surgery History of cholecystectomy [place] teeth extracted H/O LEEP History of sleeve gastrectomy History of right oophorectomy Family History Mother Diabetes Hypertension Chronic mental illness Father Medical history unknown Maternal Grandmother Diabetes Maternal Uncle Brain tumor Brother Asthma Son In good health Son In good health Maternal Grandfather Esophageal cancer Social History Household Members: Children Household Members Other:: sister Housing: House Patient Tobacco Use Status: Never used Tobacco Tobacco use type: Cigarette e-Cigarette/Vaping Use: Never Used Second Hand Smoke Exposure: No service: No Current occupational status: employed Current occupation: [employer] Current occupational exposures/hazards: No Sexual orientation: Straight/Heterosexual Gender identity: Female Cognitive needs: No Hearing needs: No Vision needs: Yes Female Reproductive History Menstrual Age of Menarche: 11 Questionnaire PHQ-9 Over the last 2 weeks, how often have you been bothered by any of the following problems? 1. Little interest or pleasure in doing things: not at all 2. Feeling down, depressed, or hopeless: several days 3. Trouble falling or staying asleep, or sleeping too much: several days 4. Feeling tired or having little energy: several days 5. Poor appetite or overeating: several days 6. Feeling bad about yourself - or that you are a failure or have let yourself or your family down: not at all 7. Trouble concentrating on things, such as reading the newspaper or watching television: more than half the days 8. Moving or speaking so slowly that other people could have noticed. Or the opposite - being so fidgety or restless that you have been moving around a lot more than usual: not at all 9. Thoughts that you would be better off or of hurting yourself in some way: not at all Total score: 6 Source: Developed by Drs. Chaim Page, Madeleine Mohr, Jose Sow and colleagues, with an educational lara from [employer]. Thrive Questionnaire Date Thrive assessed: 02/09/25 I am a: Patient What is your living situation today?: I have a steady place to live Within the past 12 months, did the food you bought not last and you didn't have the money to get more?: Sometimes True Within the past 12 months, did you worry whether your food would run out before you got money to buy more?: Often true Do you have trouble paying for medicines?: No Do you have trouble getting transportation to medical appointments?: No Do you have trouble paying your heating and electricity bill?: No Do you have trouble taking care of your child, family member or friend?: No Do you have trouble with day-to-day activities such as bathing, preparing meals, shopping, managing finances, etc.?: No Are you currently unemployed and looking for a job?: No Are you interested in more education?: No Please select the resources that you would like help with: None Currently or been in a relationship where the following occur: No concerns reported THRIVE Score: 2 AUDIT C Alcohol Use Questionnaire (AUDIT-C) 1. How often do you have a drink containing alcohol?: Monthly or less 2. How many drinks containing alcohol do you have on a typical day when you are drinking?: 1 or 2 3. How often do you have six or more drinks on one occasion?: Never Total Score: 1 ZENON-7 AMB Questionnaire ZENON-7 Date ZENON - 7 assessed: 02/09/25 Feeling nervous, anxious, or on edge: 2 = More than half the days Not being able to stop or control worryin = Several days Worrying too much about different things: 1 = Several days Trouble relaxin = Several days Being so restless that it is hard to sit still: 0 = Not at all Becoming easily annoyed or irritable: 1 = Several days Feeling afraid as if something awful might happen: 1 = Several days Total ZENON-7 score (0-4 normal; 5-9 mild; 10-14 moderate; 15-21 severe): 7 Source: Developed by Drs. Chaim Page, Madeleine Mohr, Jose Sow and colleagues, with an educational lara from [employer]. Review of Systems Const Reports headache(s) (on and off) Eyes Denies loss of vision ENT Denies vertigo, Denies dizziness, Reports headache(s) (on and off), Reports neck pain and Denies sore throat Card Denies chest pain, Denies leg edema and Denies lightheadedness Resp Denies cough, Denies hemoptysis and Denies wheezing GI Denies abdominal pain, Denies melena, Reports constipation (on and off), Denies diarrhea and Denies vomiting Denies urinary frequency, Denies dysuria and Denies urinary urgency Musc Reports back pain (lower back), Reports arthralgias (knees), Denies joint swelling, Reports neck pain, Denies numbness, Reports radiating pain into limb (on and off) and Denies tingling Neuro Denies Abnormal speech present, Denies behavioral changes, Denies vertigo, Denies dizziness, Reports headache(s) (on and off), Denies loss of vision, Denies memory loss, Denies numbness and Denies tingling Psych Reports anxiety, Denies behavioral changes, Denies depression, Denies memory loss and Denies panic attacks Toney/Lymph Denies easy bleeding and Denies easy bruising Aller/Immun Denies wheezing Physical exam (Primary Care) Vital Signs: Last Vital Signs Temp 97.1 F 02/09/25 13:29 Pulse 78 02/09/25 13:29 Resp 18 02/09/25 13:29 BP 130/90 H 02/09/25 13:29 Pulse Ox 97 02/09/25 13:29 Oxygen Delivery Method Room Air 02/09/25 13:29 BMI result Body Mass Index 30.4 Tobacco/Smoking Status: Tobacco use Status Tobacco use date assessed 02/09/25 02/09/25 13:40 Patient Tobacco Use Status Never used Tobacco 02/09/25 13:40 Tobacco use type Cigarette 02/09/25 13:40 e-Cigarette/Vaping Use Never Used 02/09/25 13:40 PHQ-9: PHQ-9 Score PHQ-9: Total score 6 02/09/25 13:40 Thrive Assessment: Date of Thrive Assessment Date Thrive assessed 02/09/25 02/09/25 13:40 Currently or been in a relationship where the following occur: No concerns reported Const General: healthy appearing, no acute distress, alert and awake Nutritional Appearance: well nourished Orientation/consciousness: oriented to person, oriented to place and oriented to time HENMT Ears: TM's normal bilaterally General nose exam: Normal nasal mucous membranes and turbinates present Eyes Conjunctivae: conjunctivae normal Sclerae: sclerae normal Pupils: Equal, round and reactive pupils present Neck Neck: Yes no lymphadenopathy and Yes no JVD Thyroid: Thyroid normal Carotids: no bruits Resp Effort & Inspection: normal respiratory effort and not tachypneic Auscultation: no crackles, no rales, no rhonchi and no wheezes Cardio Rate: regular rate Rhythm: regular rhythm Heart sounds: no murmurs and normal S1 and S2 GI Palpation (GI): Soft to palpation, nontender, no hepatomegaly and no splenomegaly Auscultation: normal bowel sounds Back/Spine/Pelvis Cervical Spine: No Cervical spine tenderness Thoracic/Lumbar Spine: No lumbar spinal tenderness Skin General skin exam: no rashes or lesions noted and dry skin Neuro General: oriented to person, oriented to place and oriented to time Cranial nerves: Yes CN's II-XII intact bilaterally and Yes Equal, round and reactive pupils present Speech: No Abnormal speech present Gait exam (Neuro): Normal gait present Motor exam (neuro): no tremor noted Extrem Right upper extremity: full ROM Left upper extremity: full ROM Right lower extremity: full ROM and knee Details: no tenderness and no swelling; no edema Left lower extremity: full ROM and knee Details: no tenderness and no swelling; no edema Psych Mental Status: mental status grossly normal Speech and movement: Normal speech and movement present Affect: normal affect Attitude: cooperative Thought process: Normal thought process present Results Reviewed Results Reviewed: Laboratory Tests 12/17/24 12/17/24 09:53 09:57 WBC 8.1 RBC 4.58 Hgb 13.7 Hct 39.9 MCV 87.1 MCH 29.9 MCHC 34.3 RDW 11.5 Plt Count 300 MPV 8.6 L Immature Gran % (Auto) 0.6 H Neut % (Auto) 65.8 Sodium 139 Potassium 4.1 Chloride 106 Carbon Dioxide 26 Anion Gap 11 L BUN 12 Creatinine 0.79 Estimated GFR > 60 Fasting Glucose 92 Calcium 9.5 Total Bilirubin 0.7 AST 22 ALT 25 Alkaline Phosphatase 64 Total Protein 7.4 Albumin 4.5 Triglycerides 113 Cholesterol 180 LDL Cholesterol, Calc 115 H HDL Cholesterol 43 25-OH Vitamin D Total 28.6 L TSH 1.62 Urine Color Yellow Urine Appearance Clear Urine pH 7.0 Ur Specific [place] <= 1.005 Urine Protein Negative Urine Glucose (UA) Negative Urine Ketones Negative Urine Blood Trace Urine Nitrite Negative Ur Leukocyte Esterase Negative Urine RBC 0-2 Urine WBC 0-5 Ur Squamous Epith Cells 0-2 Urine Bacteria None Seen Hyaline Casts 0-2 Coding Level of Care Code Est Pt Prev Care 40-64y(06837) Diagnoses Physical exam Z00.00 Depression, unspecified depression type F32.A Depression Type: unspecified Migraine without status migrainosus, not intractable, unspecified migraine type G43.909 Intractability: not intractable Migraine type: unspecified Status migrainosus presence: without status migrainosus Radiculitis of right cervical region M54.12 Cervical spondylosis M47.812 Acne vulgaris L70.0 Acne type: acne vulgaris Abnormal uterine bleeding (AUB) N93.9 Chronic pain of both knees M25.561; M25.562; G89.29 Chronicity: chronic Right shoulder pain, unspecified chronicity M25.511 Chronicity: unspecified Chronic bilateral low back pain with right-sided sciatica G89.29; M54.41 Chronicity: chronic Back pain laterality: bilateral Sciatica presence: with sciatica Sciatica laterality: sciatica of right side Vitamin D deficiency E55.9 Pure hypercholesterolemia E78.00 Hyperlipidemia type: pure hypercholesterolemia Time Spent (min) 39 Assessment & Plan Assessment & Plan (1) Physical exam: Code(s): Z00.00 - Encounter for general adult medical examination without abnormal findings Category: Medical Plan: Preventative guidelines and recent labs reviewed with the patient (2) Depression: Code(s): F32.9 - Major depressive disorder, single episode, unspecified Category: Medical Qualifiers: Depression Type: unspecified Qualified Code(s): F32.A - Depression, unspecified Plan: Reports exacerbation close to periods and was recommended to by her psychiatrist to have Obgyn order medication to stop her period. She is already on Levonorgestrel IU, however, she is still getting her periods while on her IUD. Continue gabapentin 100 mg at bedtime, hydroxyzine HCI 10 mg TID prn, and lorazepam 0.5 mg daily. Follow up with psychiatry as scheduled (3) Migraine headache: Code(s): G43.909 - Migraine, unspecified, not intractable, without status migrainosus Category: Medical Qualifiers: Intractability: not intractable Migraine type: unspecified Status kim rainosus presence: without status migrainosus Qualified Code(s): G43.909 - Migraine, unspecified, not intractable, without status migrainosus Plan: Lifestyle changes for acute onset or preventative migraine headache Consistent sleeping times, at least 8 hours a night Regularly scheduled meals and between meal snacks Adequate fluid intake to prevent dehydration, especially with high intensity sports/activity Avoid triggers (bright light, loud noises, strong smells, etc.,0 Keep headache diary to try to pinpoint triggers (4) Radiculitis of right cervical region: Code(s): M54.12 - Radiculopathy, cervical region Category: Medical Plan: Cervical showing narrowing of intervertebral disc spaces at C5-C6, C6-C7, and C7-T1 suggests suggest cysts underlying moderate degenerative disc disease. Continue gabapentin 100 mg at bedtime, baclofen 20 mg at bedtime and Tylenol 650 mg p.r.n. Patient was evaluated by pain management recently and a MRI of the cervical spine was ordered to further evaluate (5) Cervical spondylosis: Code(s): M47.812 - Spondylosis without myelopathy or radiculopathy, cervical region Category: Medical Plan: Same as above (6) Acne: Code(s): L70.9 - Acne, unspecified Category: Medical Qualifiers: Acne type: acne vulgaris Qualified Code(s): L70.0 - Acne vulgaris Plan: Reports that her current treatment metronidaole 1% has been ineffective will try the patient on clindamycin 1% topical (7) Abnormal uterine bleeding (AUB): Code(s): N93.9 - Abnormal uterine and vaginal bleeding, unspecified Category: Medical Plan: Continue levonorgestrel IUD Follow up with OBGYN as scheduled (8) Bilateral knee pain: Code(s): M25.561 - Pain in right knee; M25.562 - Pain in left knee Category: Medical Qualifiers: Chronicity: chronic Qualified Code(s): M25.561 - Pain in right knee; M25.562 - Pain in left knee; G89.29 - Other chronic pain Plan: History of cortisone injections with positive effects in the left knee only. Reports that she has been coping with conservative treatment of Tylenol, baclofen and gabapentin (9) Shoulder pain, right: Code(s): M25.511 - Pain in right shoulder Category: Medical Qualifiers: Chronicity: unspecified Qualified Code(s): M25.511 - Pain in right shoulder Plan: right shoulder xray showed mild spurring of the AC joint 05/28/24 Recent PT with positive effects (10) Lower back pain: Code(s): M54.50 - Low back pain, unspecified Category: Medical Qualifiers: Chronicity: chronic Back pain laterality: bilateral Sciatica presence: with sciatica Sciatica laterality: sciatica of right side Qualified Code(s): G89.29 - Other chronic pain; M54.41 - Lumbago with sciatica, right side Plan: Reports a history of bulging discs-NO MRI in over 15 years reports radiculopathy on the right side mostly, infrequently she might get pain down her left side Follow up with pain management as scheduled (11) Vitamin D deficiency: Code(s): E55.9 - Vitamin D deficiency, unspecified Category: Medical Plan: Cholecalciferol 25 mcg daily ordered (12) HLD (hyperlipidemia): Code(s): E78.5 - Hyperlipidemia, unspecified Category: Medical Qualifiers: Hyperlipidemia type: pure hypercholesterolemia Qualified Code(s): E78 .00 - Pure hypercholesterolemia, unspecified Plan: LDL 115 on 12/17/2024 Discussed lifestyle modifications including dietary changes and physical activity Medications: New cholecalciferol (vitamin D3) 25 mcg PO DAILY 90 caps 3RF
--- OUTSIDE RECORDS SUMMARY | 2025-02-09 14:19 | XMS_ITS | Clinical Summary ---
Author Organization [address] [place] [address] Address [address] [place] [address] Phone Care Team Providers Care Electronic Maintenance Supervisor Name Role Phone Lonnie Arthur MD Primary Care Provider [phone] Allergies Active Allergy Reactions Criticality Noted Date [...] CERVICAL BIOPSY W/ LOOP ELECTRODE EXCISION PROCEDURE: PA CONIZATION CERVIX W/WO D&C RPR ELTRD EXC OOPHORECTOMY Right PROCEDURE: HISTORICAL OOPHORECTOMY Medical History Medical History Date Comments Anxiety 02/18/2020 DX:Anxiety Depression 02/18/2020 DX:Depression Insomnia 02/18/2020 DX:Insomnia Migraines 02/18/2020 DX:Migraines GERD (gastroesophageal reflux disease) 02/18/2020 DX:GERD (gastroesophageal reflux disease) Asthma 02/18/2020 DX:Asthma Morbid obesity with BMI of 4 0.0-44.9, adult (CMS/[facility] V24, [facility] V28) 07/02/2019 DX:Morbid obesity wit h BMI [...] patient's age to complete this topic Insurance [facility] Care Teams Electronic Maintenance Supervisor Relationship Specialty Start Date End Date Lonnie Arthur MD [address] [place] [address] PCP - General Internal Medicine 03/27/19
== END 2025-02-09 14:07 | disposition home or self-care (01) ==
PROVIDERS: PCP Internal Medicine
DX: Z00.00 Encounter for general adult medical examination without abnormal findings (principal); F32.A Depression, unspecified; G43.909 Migraine, unspecified, not intractable, without status migrainosus; M54.12 Radiculopathy, cervical region; M47.812 Spondylosis without myelopathy or radiculopathy, cervical region; L70.0 Acne vulgaris; N93.9 Abnormal uterine and vaginal bleeding, unspecified; M25.561 Pain in right knee; M25.562 Pain in left knee; G89.29 Other chronic pain; M25.511 Pain in right shoulder; M54.41 Lumbago with sciatica, right side; E55.9 Vitamin D deficiency, unspecified; E78.00 Pure hypercholesterolemia, unspecified

== ENCOUNTER → 2025-02-16 18:21 | Outpatient (BNV) | payer BC, SELFPAY | PROVIDERS: Visit Provider Student in an Organized Health Care Education/Training Program | DX: M47.812 Spondylosis without myelopathy or radiculopathy, cervical region (principal); M99.61 Osseous and subluxation stenosis of intervertebral foramina of cervical region | CPT/HCPCS: 72141 ==

== ENCOUNTER 2025-02-16 18:23 | Outpatient (REF) | payer BC, SELFPAY ==
--- NOTE | ~2025-02-16 | MR_ITS ---
CLINICAL HISTORY: M47.812 - Spondylosis without myelopathy or radiculopathy, cervical region MR cervical spine without gadolinium Comparison: CR/NE/SR - XR CERVICAL SPINE 2-3 VIEWS - 06/03/24 12:04 EST Findings: Straightening of the normal cervical lordosis on degenerative basis. Moderate multilevel spondylosis disc desiccation disc height loss, posterior disc osteophyte complexes, and facet arthropathy. No acute fractures or pathologic bone lesions. At C2-C3,no significant spinal canal or neural foraminal narrowing. At C3-C4, no significant spinal canal or neural foraminal narrowing. At C4-C5, no significant spinal canal or neural foraminal narrowing. At C5-C6, mild spinal canal and mild neural foraminal narrowing. At C6-C7, mild spinal canal narrowing. Moderate lateral recess and bilateral neural foraminal narrowing. At C7-T1, no significant spinal canal or neural foraminal narrowing. No acute findings on limited view of the intracranial contents. Soft tissues of the neck are normal. Cervical cord normal. IMPRESSION: No acute disease of the cervical spine. Moderate multilevel spondylosis, most notably at C6-C7 with mild spinal canal and moderate lateral recess and bilateral neural foraminal narrowings. This document has been electronically signed by: Arelis Bruce MD on 02/16/2025 19:24:15
--- OUTSIDE RECORDS SUMMARY | 2025-02-16 18:28 | XMS_ITS | Clinical Summary ---
Author Organization [address] [place] [address] Address [address] [place] [address] Phone Care Team Providers Care Cabin Agent Name Role Phone Lonnie Arthur MD Primary Care Provider [phone] Allergies Active Allergy Reactions Criticality Noted Date [...] CERVICAL BIOPSY W/ LOOP ELECTRODE EXCISION PROCEDURE: [place] CONIZATION CERVIX W/WO D&C RPR ELTRD EXC OOPHORECTOMY Right PROCEDURE: HISTORICAL OOPHORECTOMY Medical History Medical History Date Comments Anxiety 02/18/2020 DX:Anxiety Depression 02/18/2020 DX:Depression Insomnia 02/18/2020 DX:Insomnia Migraines 02/18/2020 DX:Migraines GERD (gastroesophageal reflux disease) 02/18/2020 DX:GERD (gastroesophageal reflux disease) Asthma 02/18/2020 DX:Asthma Morbid obesity with BMI of 4 0.0-44.9, adult (CMS/[facility] V24, [facility] V28) 07/02/2019 DX:Morbid obesity wit h BMI [...] patient's age to complete this topic Insurance [facility] Care Teams Cabin Agent Relationship Specialty Start Date End Date Lonnie Arthur MD [address] [place] [address] PCP - General Internal Medicine 03/27/19
== END 2025-02-16 18:24 | disposition home or self-care (01) ==
LOC: HO.MRI 18:23
PROVIDERS: Visit Provider Nurse Practitioner Family
DX: M47.812 Spondylosis without myelopathy or radiculopathy, cervical region (principal); M54.12 Radiculopathy, cervical region; M50.30 Other cervical disc degeneration, unspecified cervical region; G44.86 Cervicogenic headache
CPT/HCPCS: 72141

== ENCOUNTER 2025-02-18 09:18 | Outpatient (REF) | payer BC, SELFPAY ==
--- NOTE | ~2025-02-18 | XR_ITS ---
CLINICAL HISTORY: G89.29 - Other chronic pain 3 views sacroiliac joints Comparison: CR/SR - XR LUMBAR SPINE 4V MIN - 02/18/25 09:30 EDT Findings Alignment of the sacroiliac joints is anatomic. No significant degenerative change or erosive changes seen at the sacroiliac joints. No abnormal widening of the sacroiliac joints. Pubic symphysis is anatomically aligned. IUD projects over the central pelvis. IMPRESSION: No acute findings. This document has been electronically signed by: Gerard Arias MD on 02/19/2025 09:09:59
--- NOTE | ~2025-02-18 | XR_ITS ---
CLINICAL HISTORY: G89.29 - Other chronic pain Exam: AP, lateral, spot lateral, and bilateral oblique views of the lumbar spine. Comparison: None provided. Findings: Minimal convex right lower lumbar curvature. Alignment is anatomic on the lateral view. No fracture. Osteophytic ridging of the L5-S1 disc level. Remainder of the disc levels are unremarkable. [id number] facet joint degenerative change from L2-3 inferiorly. IUD projects over the central pelvis. Impression: Degenerative changes as above. This document has been electronically signed by: Gerard Arias MD on 02/19/2025 09:09:26
--- OUTSIDE RECORDS SUMMARY | 2025-02-18 09:50 | XMS_ITS | Clinical Summary ---
Author Organization [address] [place] [address] [address] [place] [address] Phone Care Team Providers Care Nutrition Manager Name Role Phone Lonnie Arthur MD Primary Care Provider [phone] Allergies Active Allergy Reactions Criticality Noted Date [...] CERVICAL BIOPSY W/ LOOP ELECTRODE EXCISION PROCEDURE: [place] CONIZATION CERVIX W/WO D&C RPR ELTRD EXC OOPHORECTOMY Right PROCEDURE: HISTORICAL OOPHORECTOMY Medical History Medical History Date Comments Anxiety 02/18/2020 DX:Anxiety Depression 02/18/2020 DX:Depression Insomnia 02/18/2020 DX:Insomnia Migraines 02/18/2020 DX:Migraines GERD (gastroesophageal reflux disease) 02/18/2020 DX:GERD (gastroesophageal reflux disease) Asthma 02/18/2020 DX:Asthma Morbid obesity with BMI of 4 0.0-44.9, adult (CMS/[facility] V24, [facility] V28) 07/02/2019 DX:Morbid obesity wit [...] patient's age to complete this topic Insurance [facility] Care Teams Nutrition Manager Relationship Specialty Start Date End Date Lonnie Arthur MD [address] [place] [address] PCP - General Internal Medicine 03/27/19
== END 2025-02-18 09:19 | disposition home or self-care (01) ==
LOC: HO.XRAY 09:18
PROVIDERS: Visit Provider Nurse Practitioner Family
DX: M54.41 Lumbago with sciatica, right side (principal); M53.3 Sacrococcygeal disorders, not elsewhere classified; G89.29 Other chronic pain
CPT/HCPCS: 72110; 72202

== ENCOUNTER → 2025-02-18 09:20 | Outpatient (BNV) | payer BC, SELFPAY | PROVIDERS: Visit Provider Radiology Diagnostic Radiology | DX: M51.360 Other intervertebral disc degeneration, lumbar region with discogenic back pain only (principal); G89.29 Other chronic pain; M54.41 Lumbago with sciatica, right side; M53.3 Sacrococcygeal disorders, not elsewhere classified | CPT/HCPCS: 72110; 72202 ==